=== PATIENT | female | born 1985 | race Hispanic/Latino ===

== ENCOUNTER 2017-11-12 19:21 | Emergency (ER) | payer BC ==
--- NOTE | 2017-11-12 19:51 | EDPHYS ---
Physician Documentation [facility] Name: Dolly Garza Age: 32 yrs Sex: Female : 1985 Arrival Date: 11/12/2017 Time: 19:22 Bed 13 Private MD: ED Physician Andrew Olsen HPI: 11/12 19:48 This 32 yrs old Female presents to ER via Ambulatory with complaints of jr8 Shoulder Pain. 19:48 The patient or guardian complains of decreased range of motion, pain. left trapezius. jr8 Onset: The symptoms/episode began/occurred gradually, 2 day(s) ago. Modifying factors: the symptoms are alleviated by nothing. The symptoms are aggravated by movement. Associated signs and symptoms: The patient has no apparent associated signs or symptoms. Severity of symptoms: At their worst the symptoms were moderate, in the emergency department the symptoms are unchanged. The patient has not experienced similar symptoms in the past. Stated that she started a new job for the past couple of weeks. Stated that she started to have pain in the shoulder region with decreased ROM from the pain . 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 - Social history:: Smoking status: Patient/guardian denies using tobacco. - Ebola Screening: : Patient denies travel to an Ebola-affected area in the 21 days before illness onset. ROS: 19:48 Eyes: Negative for injury, pain, redness, and discharge, ENT: Negative for injury, jr8 pain, and discharge, Neck: Negative for injury, pain, and swelling, Cardiovascular: Negative for chest pain, palpitations, and edema, Respiratory: Negative for shortness of breath, cough, wheezing, and pleuritic chest pain, Abdomen/GI: Negative for abdominal pain, nausea, vomiting, diarrhea, and constipation, Back: Negative for injury and pain, Skin: Negative for injury, rash, and discoloration, Neuro: Negative for headache, weakness, numbness, tingling, and seizure. 19:48 MS/extremity: Positive for decreased range of motion, pain, tenderness, of the left scapular area and left trapezius. Exam: 19:48 Eyes: Pupils equal round and reactive to light, extra-ocular motions intact. Lids and jr8 lashes normal. Conjunctiva and sclera are non-icteric and not injected. Cornea within normal limits. Periorbital areas with no swelling, redness, or edema. ENT: Nares patent. No nasal discharge, no septal abnormalities noted. Tympanic membranes are normal and external auditory canals are clear. Oropharynx with no redness, swelling, or masses, exudates, or evidence of obstruction, uvula midline. Mucous membranes moist. Neck: Trachea midline, no thyromegaly or masses palpated, and no cervical lymphadenopathy. Supple, full range of motion without nuchal rigidity, or vertebral point tenderness. No Meningismus. Cardiovascular: Regular rate and rhythm with a normal S1 and S2. No gallops, murmurs, or rubs. Normal PMI, no JVD. No pulse deficits. Respiratory: Lungs have equal breath sounds bilaterally, clear to auscultation and percussion. No rales, rhonchi or wheezes noted. No increased work of breathing, no retractions or nasal flaring. Abdomen/GI: Soft, non-tender, with normal bowel sounds. No distension or tympany. No guarding or rebound. No evidence of tenderness throughout. Skin: Warm, dry with normal turgor. Normal color with no rashes, no lesions, and no evidence of cellulitis. MS/ Extremity: Pulses equal, no cyanosis. Neurovascular intact. Full, normal range of motion. Neuro: Awake and alert, GCS 15, oriented to person, place, time, and situation. Cranial nerves II-XII grossly intact. Motor strength 5/5 in all extremities. Sensory grossly intact. Cerebellar exam normal. Normal gait. 19:48 Back: pain, that is moderate, of the left trapezius and left scapular area, ROM is painful, normal spinal alignment noted, CVA tenderness, is absent, muscle spasm, is appreciated in the left scapular area. Vital Signs: 19:45 BP 131 / 98; Pulse 58; Resp 16; Temp 97.6(TE); Pulse Ox 97% on R/A; Pain 10/10; aj1 MDM: 19:40 Patient medically screened. jr8 19:49 Data reviewed: vital signs, nurses notes, and as a result, I will discharge patient. jr8 Data interpreted: Pulse oximetry: on room air is 97 %. Interpretation: normal. Counseling: I had a detailed discussion with the patient and/or guardian regarding: the historical points, exam findings, and any diagnostic results supporting the discharge/admit diagnosis, the need for outpatient follow up, a family practitioner, to return to the emergency department if symptoms worsen or persist or if there are any questions or concerns that arise at home. Administered Medications: No medications were administered Disposition: 11/12/17 19:50 Discharged to Home. Impression: Muscle spasm of back. - Condition is Stable. - Discharge Instructions: Muscle Cramps and Spasms, Back Exercises, Rgew-ae-Rpro, Heat Therapy. - Prescriptions for Ibuprofen 800 mg Oral Tablet - take 1 tablet by ORAL route every 12 hours As needed take with food; 20 tablet. Ultracet 37.5- 325 mg Oral Tablet - take 1 tablet by ORAL route every 6 hours - for up to 5 days; do not exceed 8 tablets per day.; 30 tablet. Cyclobenzaprine 10 mg Oral Tablet - take 1 tablet by ORAL route every 8 hours As needed; 30 tablet. - Work release form, Medication Reconciliation Form, Thank You Letter, Antibiotic Education, Prescription Opioid Use form. - Follow up: Private Physician; When: 1 week; Reason: Recheck today's complaints, Continuance of care, Re-evaluation by your physician. - Problem is new. - Symptoms have improved. Addendum: 11/15/2017 10:17 Co-signature as Attending Physician, Andrew Olsen MD. g s Signatures: Chelsy Saha RN RN aj1 Kristen Singh RN RN iw Oc Jeff PA PA jr8 Andrew Olsen MD MD gs Corrections: (The following items were deleted from the chart) 11/12 20:00 19:50 11/12/2017 19:50 Discharged to Home. Impression: Muscle spasm of back. Condition iw is Stable. Forms are Medication Reconciliation Form, Thank You Letter, Antibiotic Education, Prescription Opioid Use. Follow up: Private Physician; When: 1 week; Reason: Recheck today's complaints, Continuance of care, Re-evaluation by your physician. Problem is new. Symptoms have improved. jr8
--- NOTE | 2017-11-12 19:51 | ER ---
Nurse's Notes [facility] Name: Dolly Garza Age: 32 yrs Sex: Female : 1985 Arrival Date: 11/12/2017 Time: 19:22 Bed 13 Private MD: Diagnosis: Muscle spasm of back Presentation: 11/12 19:42 Presenting complaint: Patient states: She has been having left shoulder pain that aj1 radiates to her neck and down her back since yesterday. Denies injury. Limited ROM noted to left shoulder. Transition of care: patient was not received from another setting of care. Onset of symptoms was November 11, 2017. Risk Assessment: Do you want to hurt yourself or someone else? Patient reports no desire to harm self or others. Initial Sepsis Screen: Does the patient meet any 2 criteria? No. Patient's initial sepsis screen is negative. Does the patient have a suspected source of infection? No. Patient's initial sepsis screen is negative. Care prior to arrival: None. 19:42 Method Of Arrival: Ambulatory aj1 19:42 Acuity: CYNTHIA 4 aj1 Triage Assessment: 19:45 General: Appears in no apparent distress. uncomfortable, Behavior is calm, cooperative, aj1 appropriate for age. Pain: Complains of pain in left trapezius, left scapular area and neck Pain currently is 10 out of 10 on a pain scale. Neuro: Level of Consciousness is awake, alert, obeys commands. Cardiovascular: Patient's skin is warm and dry. Respiratory: Airway is patent Respiratory effort is even, unlabored, Respiratory pattern is regular, symmetrical. Derm: Skin is pink, warm \T\ dry. normal. Musculoskeletal: Range of motion: limited in left shoulder. CENA: 19:45 LMP 11/04/2017 aj1 Historical: - Allergies: 19:45 No Known Allergies; aj1 - Home Meds: 19:45 None [Active]; aj1 - PMHx: 19:45 Migraines; aj1 - PSHx: 19:45 ; ear surgery; aj1 - Immunization history:: Flu vaccine is not up to date. - Social history:: Smoking status: Patient/guardian denies using tobacco. - Ebola Screening: : Patient denies travel to an Ebola-affected area in the 21 days before illness onset. Screenin:59 Abuse screen: Denies threats or abuse. Denies injuries from another. Nutritional iw screening: No deficits noted. Tuberculosis screening: No symptoms or risk factors identified. Fall Risk None identified. Assessment: 19:45 General: Appears in no apparent distress. uncomfortable, Behavior is calm, cooperative, iw appropriate for age. Pain: Complains of pain in left shoulder Pain currently is 9 out of 10 on a pain scale. Neuro: Level of Consciousness is awake, alert, obeys commands, Oriented to person, place, time, situation, Appropriate for age Moves all extremities. Full function Speech is normal, Facial symmetry appears normal. Cardiovascular: Denies chest pain, shortness of breath, Capillary refill < 3 seconds Patient's skin is warm and dry. Respiratory: Airway is patent Respiratory effort is even, unlabored, Respiratory pattern is regular, symmetrical. GI: Abdomen is non-distended. : No signs and/or symptoms were reported regarding the genitourinary system. EENT: No signs and/or symptoms were reported regarding the EENT system. Derm: Skin is intact, Skin is pink, warm \T\ dry. normal, Skin temperature is warm. Musculoskeletal: Circulation, motion, and sensation intact. Range of motion: intact in left shoulder. Vital Signs: 19:45 BP 131 / 98; Pulse 58; Resp 16; Temp 97.6(TE); Pulse Ox 97% on R/A; Pain 10/10; aj1 ED Course: 19:22 Patient arrived in ED. am2 19:35 [facility] jr8 19:35 Andrew Olsen MD is Attending Physician. jr8 19:43 Triage completed. aj1 19:45 Arm band placed on Patient placed in an exam room. aj1 19:50 Kristen Singh, JAYME is Primary Nurse. iw 19:59 No provider procedures requiring assistance completed. Patient did not have IV access iw during this emergency room visit. 20:00 Patient has correct armband on for positive identification. Pulse ox on. NIBP on. iw Administered Medications: No medications were administered Outcome: 19:50 Discharge ordered by . jr8 19:59 Discharged to home ambulatory. iw 19:59 Condition: stable 19:59 Discharge instructions given to patient, Instructed on discharge instructions, follow up and referral plans. Demonstrated understanding of instructions, follow-up care, medications, Prescriptions given X 3. 20:00 Patient left the ED. iw Signatures: Chelsy Saha RN RN aj1 Kristen Singh RN RN iw Oc Jeff PA PA jr8 Soraida Dillard am2
== END 2017-11-12 20:00 | disposition home or self-care (01) ==
LOC: ER 19:21
DX: M62.830 Muscle spasm of back (principal)
CPT/HCPCS: 99283

== ENCOUNTER 2019-11-18 23:20 | Emergency (ER) | payer BC ==
--- OUTSIDE RECORDS SUMMARY | 2019-11-18 23:23 | XMS REPORT | Summary of Care ---
:1985 [address] [facility] - Health Address [address] [place] [address] Care Team Providers Name Role Phone Tisha Morton AMBAR Primary Care Provider Encounter Details Date Type Department Care Team Description 08/28/[address] [facility] Doctor Unassigned, No [address] [facility] Name [place] [id number] [place] [phone] Allergies No Known Allergiesdocumented as of this encounter (statuses as of 08/28/2019) Medications Medication Sig Dispensed Refills Start Date End Date Status polyethylene glycol 1 capful PO qd 238 g 2 08/23/2017 Active (MIRALAX) 17 gram/dose prn, dissolve in powderIndications: 4-8oz of liquid Constipation, unspecified constipation type norgestimate-ethinyl Take 1 tablet by 3 Package 8 06/06/2018 Active estradiol (ORTHO mouth daily. TRI-CYCLEN, 28,) 0.18/0.215/0.25 mg-35 mcg (28) tabletIndications: Encounter for other contraceptive management documented as of this encounter (statuses as of 08/28/2019) Active Problems Problem Noted Date Well woman exam 05/23/2018 Contraceptive management 05/23/2018 documented as of this encounter (statuses as of 08/28/2019) Resolved Problems Problem Noted Date Resolved Date Postcoital bleeding 04/30/2017 05/23/2018 Pain pelvic 06/12/2016 04/30/2017 Family planning, BCP ( control pills) maintenance 12/2804/30/2017 Encounter for routine gynecological examination 10/30/2014 04/30/2017 Overview: ICD10 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 and advice for contraceptive 201404/30/2017 management BCP ( control pills) initiation 10/29/2014 Postcoital bleeding 10/29/2014 04/28/2016 Irregular menstrual cycle 10/07/2014 04/28/2016 documented as of this encounter (statuses as of 08/28/2019) Immunizations Name Administration Dates Next Due Tdap 03/15/2012 documented as of this encounter Social History Tobacco Use Types Packs/Day Years Used Date Never Smoker Smokeless Tobacco: Never Used Alcohol Use Drinks/Week oz/Week Comments No 0 Standard drinks or equivalent 0.0 Sex Assigned at Date Recorded Not on file Job Start Date Occupation Industry Not on file Not on file Not on file Travel History Travel Start Travel End No recent travel history available. documented as of this encounter Last Filed Vital Signs Not on filedocumented in this encounter Plan of Treatment Date Type Specialty Care Team Description 08/28/2019 Office Visit [facility] Graciela Morton, AMBAR Arrived [address] [place], [place] [address] [phone] Health Maintenance Due Date Last Done Comments VARICELLA VACCINES (1 of 2 - 06/10/1984 2-dose childhood series) Depression Screening 1995 PAP SMEAR 09/28/2017 09/28/2014 INFLUENZA VACCINE (Season Ended) 2019 DTaP,Tdap,and Td Vaccines (2 - Td) 03/15/2022 03/15/2012 PNEUMOCOCCAL 0-64 YEARS COMBINED Aged Out No longer eligible based on SERIES patient's age to complete this topic documented as of this encounter Procedures Procedure Name Priority Date/Time Associated Diagnosis Comme nts ASSIGNMENT OF BENEFITS Routine 08/28/2019 10:33 AM CDT documented in this encounter Results Not on filedocumented in this encounter Insurance Payer Benefit Plan Subscriber ID Effective Dates Phone Address Type / Group [facility] [id number] 2016-Jerry [phone] [address] PPO/POS [place] t 7 [id number] [place] [address] documented as of this encounter Advance Directives Name Relationship Healthcare Agent Relationship Co mmunication David Garza Spouse Primary healthcare agent
--- OUTSIDE RECORDS SUMMARY | 2019-11-18 23:23 | XMS REPORT | Summary of Care ---
:[address] [facility] Address [address] [place] [address] Care Team Providers Name Role Phone Tisha Morton [facility] Primary Care Provider Reason for Visit Reason Comments Refill Request Encounter Details Date Type Department Care Team Description [facility] [address] [place] [address] [phone] [place], [place] [address] [phone] Allergies No Known Allergiesdocumented as of this encounter (statuses as of 08/24/2019) Medications Medication Sig Dispensed Refills Start Date [...] as of this encounter (statuses as of 08/24/2019) Active Problems Problem Noted Date Well woman exam 05/23/2018 Contraceptive management 05/23/2018 documented as of this encounter (statuses as of 08/24/2019) Resolved Problems Problem Noted Date Resolved Date Postcoital bleeding 04/30/2017 05/23/2018 Pain pelvic 06/12/2016 04/30/2017 Family planning, BCP ( control pills) maintenance 12/2804/30/2017 Encounter for routine gynecological examination 10/30/2014 04/30/2017 Overview: ICD10 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 and advice for contraceptive 201404/30/2017 management BCP ( control pills) initiation 10/29/2014 Postcoital bleeding 10/29/2014 04/28/2016 Irregular menstrual cycle 10/07/2014 04/28/2016 documented as of this encounter (statuses as of 08/24/2019) Immunizations Name Administration Dates Next Due Tdap [...] filedocumented in this encounter Plan of Treatment Health Maintenance Due Date Last Done Comments VARICELLA VACCINES (1 of 2 - 06/10/1984 2-dose childhood series) Depression Screening 1995 PAP SMEAR 09/28/2017 09/28/2014 INFLUENZA VACCINE (Season Ended) 2019 DTaP,Tdap,and Td Vaccines (2 - Td) 03/15/2022 03/15/2012 PNEUMOCOCCAL 0-64 YEARS COMBINED Aged Out No longer eligible based on SERIES patient's age to complete this topic documented as of this encounter Results Not on filedocumented in this encounter Visit Diagnoses Diagnosis Encounter for other contraceptive manage ment documented in this encounter Insurance Payer Benefit Plan Subscriber ID Effective Dates Phone Address Type / Group [employer] [place] [id number] 2016-Jerry [phone] [address] PPO/POS [place] t 7 [id number] [place] [address] documented as of this encounter Advance Directives Name Relationship Healthcare Agent Relationship Co mmunication David Garza Spouse Primary healthcare agent
--- OUTSIDE RECORDS SUMMARY | 2019-11-18 23:23 | XMS REPORT | Continuity of Care Document ---
:1985 Author Organization [facility] t Address [address] [place] [address] Care Team Providers Name Role Phone Tisha Olivarez Attending Clinician [phone] Problems This patient has no known problems. Allergies, Adverse Reactions, Alerts This patient has no known allergies or adverse reactions. Medications This patient has no known medications. Procedures This patient has no known procedures. Encounters Start End Encounter Admission Attending Care Care Encounter Source Date/Time Date/Time Type Type Clinicians Facility Department ID 2019-10-22 2019-10-22 Refill KIM Morton [id number] 00:00:00 00:00:00 Tisha Chavira [facility] [id number] REGIONAL [id number] MATERNAL [id number] & CHILD [facility] 2019-08-28 2019-08-28 Office KIM Morton [id number] 10:28:26 11:49:05 Visit Tisha Chavira COMMUNITY CENTER WORKER [id number] [facility] [id number] MATERNAL [id number] & CHILD 107 [facility] Results This patient has no known results.
--- OUTSIDE RECORDS SUMMARY | 2019-11-18 23:23 | XMS REPORT | Summary of Care ---
:1985 Author Organization [facility] - [facility] Address [address] [place] [id number] Care Team Providers Name Role Phone Tisha Morton [facility] Primary Care Provider [phone] Reason for Visit Reason Comments Well Woman Exam Encounter Details Date Type Department Care Team Description 08/28/[address] [facility]- Tisha Morton ounter for initial prescription of contraceptives, unspecified contraceptive (Primary Dx); [facility]; [address] Encounter for other contraceptive manage ment; [address] [facility] Screening for thyroid disorder [place] [id number] 15 [id number] Allergies No Known Allergiesdocumented as of this encounter (statuses as of 08/28/2019) Medications Medication Sig Dispensed Refills Start Date End Date Status polyethylene 1 capful PO 238 g 2 08/23/2017 Acti ve glycol (MIRALAX) qd prn, 17 gram/dose dissolve in powderIndications: 4-8oz of Constipation, liquid unspecified constipation type norgestimate-ethin Take 1 tablet 1 Package 11 08/28/2019 Active yl estradiol by mouth (ORTHO TRI-CYCLEN, daily. 28,) 0.18/0.215/0.25 mg-35 mcg (28) tabletIndications: Encounter for other contraceptive management norgestimate-ethin Take 1 tablet 3 Package 8 06/06/2018 Discontinued yl estradiol by mouth 0 (Reorde r) (ORTHO TRI-CYCLEN, daily. 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 COVID-19 Exposure Response Date Recorded In the last month, have you been in contact with No / Unsure 08/28/2019 10:45 AM CDT someone who was confirmed or suspected to have Coronavirus / COVID-19? documented as of this encounter Last Filed Vital Signs Vital Sign Reading Time Taken Comments Blood Pressure 112/77 08/28/2019 10:45 AM CDT Pulse 53 08/28/2019 10:45 AM CDT Temperature 36.5 C (97.7 F) 08/28/2019 10:45 AM CDT Respiratory Rate 16 08/28/2019 10:45 AM CDT Oxygen Saturation - - Inhaled Oxygen Concentration - - Weight 56.2 kg (124 lb) 08/28/2019 10:45 AM CDT Height 160 cm (5' 3") 08/28/2019 10:45 AM CDT Body Mass Index 21.97 08/28/2019 10:45 AM CDT documented in this encounter Patient Instructions Patient Heather Leroy LVN - 08/28/2019 10:45 AM CDT Patient Education Examen clnico de seno Muchas organizaciones de caren recomiendan hacerse un examen clnico de seno por ao. Tabatha examen puede ser realizado por un gineclogo, proveedor de atencin mdica de kayden, enfermera profesional, enfermera obsttrica o enfermera especializada. Los exmenes de seno anuales ayudan a garantizar que las afecciones de los senos se detecten a tiempo. Funcin de carbajal proveedor de atencin mdica El profesional de la atencin mdica conoce los estudios y cuidados de seguimiento necesarios si se detecta algn problema. Carbajal examen clnico representa tambin real excelente oportunidad para plantear preguntas acerca del autoexamen de seno. Usted podr saber si est realizando carbajal autoexamen elias manera ms eficaz. Igualmente, puede preguntar sobre manager regional el embarazo, los implantes de seno o la ciruga de reduccin de seno afectan la manera en que usted deber examinarse los senos. Estudios de diagnstico Si un examen clnico revela un cambio en los senos, se pueden efectuar otros estudios para saber ms, por ejemplo: Mamografa. Iraj X de baja dosis utilizados para crear imgenes del tejido interior del seno. Ultrasonido. Utilizacin de ondas de moy para crear real imagen del seno. Biopsia. Remocin de real pequea cantidad de tejido del seno mediante real aguja o real incisin. El tejido se examina luego con un microscopio. Normas para realizarse exmenes clnicos de seno ElAmerican College of Obstetricians and Gynecologists (Colegio Estadounidense de Obsttras y Gineclogos) recomienda que, a partir de los 29 aos de edad, usted debe hacerse a un examen clnico de seno cada yanet a mark aos. Despus de los 40, deber hacerse el examen clnico de seno anualmente. Si tiene mayor riesgo de padecer cncer de seno, puede requerir exmenes ms frecuentes. Entrelos factores de riesgo del cncer de seno se encuentran los siguientes: Ser mayor de 50 aos o estar en etapa posmenopusica Tener antecedentes familiares de cncer de seno Tener la mutacin del gen BRCA1 o BRCA2 u otras determinadas mutaciones genticas Zulema tenido ms menstruaciones por zulema empezado a menstruar a edad temprana (antes de los 12 aos) o zulema tenido real menopausia tarda (despus de los 55 aos) No zulema tenido embarazos Zulema tenido un primer embarazo despus de los 30 aos Obesidad Tener un historial de tratamiento con iraj en la sonya de carbajal pecho Exposicin al dietilestilbestrol(SONIA)cesar el embarazo de carbajal madre No ser activo Beber alcohol en exceso Tener tejido mamario denso Realizar terapia hormonal despus de la menopausia Otras organizaciones de caren tienen diferentes recomendaciones. Hable con carbajal proveedor de atencinmdica sobre lo que es mejor para usted. [id number] [employer]. [address] [place] [address], [place] [address]. Todos los derechos reservados. Esta informacin no pretende sustituir la atencin mdica profesional. Slo carbajal mdico puede diagnosticar y tratar un problema de caren. Patient Education Caren de los senos: Conocimiento de los propios senos Qu es el conocimiento de los propios senos? El conocimiento de los propios senos es saber manager regional se monserrat y se sienten normalmente janene senos. Janene senos cambian a lo glenn de las diferentes etapas de la niraj. Por eso, es importante saber qu es lo normal en el jaison de janene senos. Conocer janene propios senos le ayudar a darse cuenta de inmediato de cualquier cambio que pudiese zulema en janene senos. Informe de cualquier cambio a carbajal proveedor de atencin mdica. Por qu es importante el conocimiento de los propios senos? Muchos expertos dicen ahora que las mujeres deberan conocer mejor janene senos en lugar de hacerse unautoexamen de los senos (BSE, por janene siglas en ingls). Tales expertos son, por ejemplo, la Sociedad Americana contra el Cncer, el U.S. Preventive Services Task Force (USPSTF, Gonsalo de tareas dedicado a los servicios preventivos en [place]. U[place].) y el [place] Congress of Obstetricians and Gynecologists(Colegio Americano de Obstetras y Gineclogos). Algunos expertos incluso aconsejan no ensearles ma mujeres a hacerse un autoexamen de los senos. Eso es porque las investigaciones realizadas no cooper demostrado que radha tipo de autoexamen tenga algn beneficio. El conocimiento de los propios senos es diferente del autoexamen. No tiene que zach con seguir un cierto mtodo y cronograma. Tiene que zach con saber qu es lo normal en el jaison de janene senos. As, usted podr notar de inmediato hasta los cambios ms pequeos. Si percibe algn cambio, informe a carbajal proveedor de atencin mdica. Cambios a los que debe prestar atencin Llame a carbajal proveedor de atencin mdica si ve algn cambio en janene senos que le preocupe. Estos cambios pueden incluir, por ejemplo: Un bulto Secrecin del pezn que no sea leche materna, especialmente, si tiene rastros de ngozi Inflamacin Un cambio en la forma o el tamao Irritacin de la piel, gentry enrojecimiento, engrosamiento o hundimiento de la piel Ganglios linfticos inflamados en la axila Problemas en los pezones, gentry dolor o enrojecimiento Si encuentra un bulto Comunquese con carbajal proveedor si nota algn tipo de dureza en yanet de janene senos, siente algo diferente en el tejido o, definitivamente, palpa un bulto. En ocasiones, las durezas pueden deberse a los cambios menstruales. Larry puede que haya motivos para preocuparse. Carbajal proveedor querr verla de inmediato si usted tiene: Real secrecin sanguinolenta del pezn Cambios en la piel, gentry hundimiento o pliegues Es normal que se preocupe si encuentra un bulto. Larry es importante que se comunique de inmediato con carbajal proveedor. Recuerde que la mayora de los bultos en los senos son benignos. Eso significa que no son cancerosos. [id number] [employer]. [address] [place] [address], [place] [address]. Todos los derechos reservados. Esta informacin no pretende sustituir la atencin mdica profesional. Slo carbajal mdico puede diagnosticar y tratar un problema de caren. Patient Education Pautas de prevencin para mujeres de entre 18 y 39aos de edad Las pruebas de deteccin y las vacunas son importantes para el manejo de carbajal caren. Las pruebas de deteccin se realizan para detectar posibles trastornos o enfermedades en personas que no tienen ningn sntoma. El objetivo es encontrar real enfermedad de manera temprana para poder hacer cambios en el estilo de niraj y para que lo puedan controlar de cerca para reducir los riesgos de sufrir real enfermedad, o para detectarla a tiempo y poder tratarla de manera eficaz. Las pruebas de deteccin no son pruebas de diagnstico, lrary se usan para decidir si se deben realizar otros estudios. La consejera sobre carbajal caren tambin es esencial. A continuacin, zach pautas en relacin con esos temas para mujeres de entre 18 y 39aos de edad. Hable con carbajal proveedor de atencin mdica para asegurarse de que est al da con todo lo que necesita. Prueba de deteccin Para quines Frecuencia Uso indebido del alcohol Todas las mujeres de tabatha gonsalo de edad En los exmenes de rutina Presin arterial Todas las mujeres de tabatha gonsalo de edad [place]que[place] anual si carbajal presin arterial es normal La presin arterial normal es simon que 120/80mmHg Si la lectura de carbajal presin arterial es ms ru que lo normal, siga las indicaciones de carbajal proveedor de atencin mdica Cncer de mama Todas las mujeres de tabatha gonsalo de edad deben hablar con janene proveedores de atencin mdica sobre la necesidad de realizar exmenes clnicos de mamas (CBE)1 Examen clnico de mamascada 3 aos1 Cncer del taryn uterino Las mujeres de 21 aos o ms Las mujeres de entre 21 y 29 aos deben hacer un Papanicolau cada mark aos; las mujeres de entre 30 y 65 deben hacerse un Papanicolau y tambin real prueba de VPH cada tomás aos Clamidia Las mujeres sexualmente activas menores de 24 aos y las mujeres que tienen mayor riesgo de infeccin Cada mark aos si tiene riesgo o si tiene sntomas Depresin Todas las mujeres de tabatha gonsalo de edad En los exmenes de rutina Diabetes tipo 2, prediabetes Las adultas que no tengan sntomas, que tengan sobrepeso o que james obesas y tengan yanet o ms riesgos adicionales de diabetes Al menos cada mark aos Adems, anlisis para detectar la diabetes cesar el embarazo despus de la semana 24. Diabetes tipo 2, prediabetes Todas las mujeres diagnosticadas con diabetes gestacional Anlisis de por niraj cada mark aos Diabetes tipo 2 Todas las mujeres con prediabetes Anualmente Gonorrea Las mujeres sexualmente activas con mayor riesgo de infeccin En los exmenes de rutina Hepatitis C Todas las mujeres que tienen mayor riesgo En los exmenes de rutina VIH Todas las mujeres deben realizarse la prueba del VIH al menos real vez entre los 13 y los 64 aos En los exmenes de rutina Las personas con factores de riesgo de tener el VIH deben hacerse los anlisis anualmente, gentry mnimo. Obesidad Todas las mujeres de tabatha gonsalo de edad En los exmenes de rutina Sfilis Las mujeres con mayor riesgo de infeccin deben hablar con carbajal proveedor de atencin mdica En los exmenes de rutina Tuberculosis Las mujeres con mayor riesgo de infeccin deben hablar con carbajal proveedor de atencin mdica Consulte a carbajal proveedor de atencin mdica Wilson Todas las mujeres de tabatha gonsalo de edad Al menos un examen completo entre los 20 y los 30 aos, y dos entre los 30 y los 40 aos Vacuna2 Para quines Frecuencia Varicela Todas las mujeres de tabatha gonsalo de edad que no tienen registro de zulema tenido esta infeccin o de haberse aplicado esta vacuna Dos dosis. La segunda dosis debera aplicrsela entre cuatro y ocho semanas despus de la primera dosis Hepatitis A Las mujeres con mayor riesgo de infeccin deben hablar con carbajal proveedor de atencin mdica Dos dosis que se aplican al menos con seis meses de distancia Hepatitis B Las mujeres con mayor riesgo de infeccin deben hablar con carbajal proveedor de atencin mdica Mark dosis a lo glenn de seis meses; la segunda dosis debera aplicarse un mes despus de la primera dosis; la tercera dosis debera aplicarse al menos dos meses despus de la segunda dosis y,al menos, cuatro meses despus de la primera dosis Haemophilus influenzaeTipo B (HIB) Las mujeres con mayor riesgo de infeccin deben hablar con carbajal proveedor de atencin mdica Real a mark dosis Virus del papiloma humano (VPH) Todas las mujeres de tabatha gonsalo de edad hasta los 26 aos Mark dosis; la segunda dosis debera aplicarse entre yanet y dos meses despus de la primera dosis, y la tercera dosis debera aplicarse seis meses despus de la primera dosis Influenza (gripe) Todas las mujeres de tabatha gonsalo de edad Real vez al ao Sarampin, paperas y rubola (MMR) Todas las mujeres de tabatha gonsalo de edad que no tienen registro de zulema tenido estas infecciones o de haberse aplicado estas vacunas Real o dos dosis Antimeningoccica Las mujeres con mayor riesgo de infeccin deben hablar con carbajal proveedor de atencin mdica Real dosis o ms Antineumoccica conjugada (PCV13) y de polisacridos (PPSV23) Las mujeres con mayor riesgo de infeccin deben hablar con carbajal proveedor de atencin mdica PCV13: Real dosis entre los 19 y 65 aos (protege contra 13 tipos de bacteria neumoccica) PPSV23: Real a dos dosis hasta los 64 aos de edad, o real dosis a partir de los 65 aos (protege contra 23 tipos de bacteria neumoccica) Refuerzo de ttanos/difteria/tos ferina (Td/Tdap) Todas las mujeres de tabatha gonsalo de edad Td cada mustapha aos o real cristo dosis de Tdap en lugar de un refuerzo de Td despus de los 18 aos. Luego, Td cada mustapha aos Consejera Para quines Frecuencia Pruebas sobre mutacin de los genes BRCA para zach el riesgo de tener cncer de ovario y cncer demama Las mujeres con mayor riesgo de tener mutacin de los genes Cuando se conoce carbajal riesgo Cncer de mama y prevencin qumica del cncer Las mujeres con alto riesgo de cncer de mama Cuando se conoce carbajal riesgo Dieta y actividad fsica Las mujeres que tienen sobrepeso u obesidad Cuando se diagnostica y, luego, en los exmenes de rutina Violencia domstica Las mujeres en edad de tener hijos En los exmenes de rutina Prevencin de infecciones de trasmisin sexual Las mujeres sexualmente activas En los exmenes derutina Cncer de piel Prevencin de cncer de piel en mujeres adultas de piel matthias En los exmenes de rutina Uso del tabaco y los efectos que puede tener sobre la caren Todas las mujeres de tabatha gonsalo de edad Todas las visitas 1Segn la [employer], las mujeres entre los 20 y los 39 aos de edad deberan hacerse un examen clnico de mama (CBE) gentry parte de janene exmenes de caren de rutina cada 3 aos. Los autoexmenes de mama son real opcin para las mujeres a partir de los 20 aos.Larry la U.S. Preventive Task Force no recomienda los exmenes clnicos de mama. 2Las personas de 18 aos o ms que no estn al da con las vacunas de la infancia deben recibir todas las vacunas de rescate recomendadas por los CDC. [id number] [employer]. [address] [place] [id number]. All rights reserved. This information is not intended as a substitute for professional medical care. Always follow your healthcare professional's instructions. Patient Education Qu son las infecciones de transmisin sexual (ITS)? Cuando de relaciones sexuales se trata, nada est jason de riesgos. Todo contacto sexual que tenga que zach con el pene, la vagina, el ano o la boca puede propiciar la propagacin de real infeccin detransmisin sexual (ITS). Las enfermedades de transmisin sexual incluyen clamidia, gonorrea, herpes, virus de la inmunodeficiencia humana (VIH) y verrugas genitales. Las infecciones de transmisin sexual tambin se conocen gentry enfermedades de transmisin sexual (ETS). La cristo manera avelar deprevenir las infecciones de transmisin sexual es no tener relaciones sexuales (abstinencia). Sin embargo, existen maneras de hacer que las relaciones sexuales james ms seguras. Cada vez que tenga rel aciones sexuales, utilice un condn de ltex. Elija carbajal jazmin con carmen. Utilice condones para mayor seguridad. Si tiene relaciones sexuales, los condones de ltex ofrecen la mejor proteccin contra las infecciones de transmisin sexual. Los condones de ltex impiden el intercambio de fluidos corporales que transmiten ciertas infecciones de trasmisin sexual. Adems, limitan el contacto con las zonas afectadas de la piel. Tenga en cuenta que el condn no cubre toda la piel. De modo que la piel afectada que no est cubierta puede an transmitir la enfermedad. No obstante, usted est mejor protegido cuando utiliza un condn que cuando no lo hace. Utilice un condn incluso si est utilizando otros m todos anticonceptivos. Los mtodos anticonceptivos gentry la pldora o los dispositivos intrauterinos (DIU) ayudan a prevenir el embarazo, larry no protegen contra las infecciones de transmisin sexual. Elija el condn adecuado Los condones de ltex ofrecen la mejor proteccin contra las enfermedades. Si es alrgico al ltex, entonces utilice condones de poliuretano. Los condones masculinos se colocan sobre el pene. Los condones femeninos recubren la vagina. Antes de comprar un condn, juan la etiqueta para asegurarse deque ayude a prevenir enfermedades, ya que algunos condones nuevos no ofrecen proteccin. El lubricante adecuado es importante Compre condones lubricados o utilice lubricante. [facility] ofrece mayor comodidad y reduce el riesgo de que se rompa el condn. Utilice solo lubricantes a base de agua. No use aceite, locin ni vaselina ya que pueden debilitar el condn y hacer que se rompa. Asimismo, se recomienda utilizar lubricantes sin nonoxinol- 9. Tabatha espermicida puede causar irritacin y aumentar el riesgo de contraer ciertas infecciones de transmisin sexual. Utilice los condones correctamente Para que los condones james eficaces, deben utilizarse correctamente. Tenga presente las siguientes sugerencias. Cada vez que tenga relaciones sexuales, utilice un condn de ltex nuevo. Pngase el condn en el pene antes de que se produzca cualquier contacto. Cuando se disponga a sacar el pene, sostenga el melissa del condn a medida que lo extrae. [facility] evitar que se le salga el condn. Antes de utilizar un condn, verifique carbajal fecha de vencimiento. No guarde los condones en lugares que puedan calentarse, gentry el auto o la billetera que se llevaen un bolsillo trasero. Conozca a carbajal jazmin Las relaciones sexuales seguras representan un proceso que supone llegar a conocer radha a la jazmin y philippe decisiones informadas. Es importante hablar de cuntas parejas weinstein tenido cada nicolette en el pasado y cuntas tiene en la actualidad. Averige si alguno de los dos tiene VIH o alguna otra infeccin de transmisin sexual. Si deciden tener relaciones sexuales, utilicen un condn cada vez que lo kelli. No deje de utilizar condones a menos que tenga la certeza de que ninguno de los dos tiene otras parejas y ambos se hayan realizado pruebas para comprobar que no tienen VIH ni ninguna otra infeccin de transmisin sexual. Luego, mantngase jason de enfermedades teniendo solo relaciones sexua les el yanet con el otro (monogamia). Mantngase en control No deje que el alcohol ni las drogas le nublen el juicio, ya que lo pueden llevar a tener relacionessexuales con alguien que usted no habra elegido de zulema estado sobrio. Tambin es posible que olvide utilizar un condn. Si tiene pensado tener relaciones sexuales, lleve siempre consigo un condn. No espere hasta que se encuentre en medio de real situacin apasionada para intentar encontrar yanet. Considere la abstinencia La cristo manera de estar seguro de que no contraer real infeccin de transmisin sexual es abstenerse de tener relaciones sexuales. La abstinencia es real decisin que muchas personas johnathan en algn momento de janene vidas. John vez desee esperar hasta estar convencido de que est listo para tener re laciones sexuales. Quizs quiera philippe un descanso de las responsabilidades que supone tener relaciones sexuales; o es posible que quiera conocer mejor a carbajal jazmin antes de eddi el siguiente paso. La abstinencia es real decisin que usted puede philippe ahora para proteger carbajal futuro. [id number] [employer]. [address] [place] [id number]. Todos los derechos reservados. Esta informacin no pretende sustituir la atencin mdica profesional. Slo carbajal mdico puede diagnosticar y tratar un problema de caren. Patient Education Qu es el VIH y el SIDA Es importante saber manager regional puede entrar el VIH en el cuerpo y qu pasa real vez que haya entrado. Entonces, estar mejor preparado para protegerse a usted mismo y a otros contra tabatha virus. Real personaque tiene el VIH puede verse y sentirse perfectamente. Larry geeta persona puede contagiar de VIH a otros jennings pronto est infectado. Si mantiene relaciones sexuales inseguras y sin proteccin, o comparte agujas, corre el riesgo de contraer el VIH. Consulte a carbajal proveedor de atencin mdica sobre manager regional protegerse a usted mismo y asus seres queridos contra el contagio del VIH. [employer] Aide evoluciona la infeccin por el VIH Despus de que el VIH entra en el cuerpo humano, ataca el sistema inmunitario por etapas, que se detallan a continuacin. Real persona con el VIH puede infectar a otros en el momento en que entra el virus en la ngozi. VIH asintomtico: Real persona con el VIH puede no presentar ningn sntoma cesar aos. La cristo seal de infeccin puede ser el resultado positivo de los anlisis de ngozi para detectar el VIH, de 2 semanas a 3 meses o ms despus de que el VIH haya entrado al organismo. VIH sintomtico:Algunas personas desarrollan real enfermedad similar a la mononucleosis 2 a 4 semanas despus de que el virus entra al organismo. [facility] se denomina sndrome retroviral amilcar. Los sntomas pueden incluir: ganglios linfticos inflamados, escalofros, fiebre, sudores nocturnos, debilidad, prdida de peso, erupciones cutneas y llagas en la boca o dolor de garganta. Los sntomas pueden ser leves o la persona puede sentirse muy mal. Incluso sin tratamiento, los sntomas costa siempre desaparecen en unos montano o hasta 2 a 3 semanas. Entonces, la persona no tiene sntomas, a menudo por aos. Sin embargo, con el tiempo, el sistema inmunitario comienza a debilitarse y los sntomas comienzan a aparecer. Las personas en esta etapa pueden tener real infeccin por levaduras en la boca (candidiasis oral), culebrilla, problemas en la piel, neumona, diarrea que no desaparece, o prdida de peso. SIDA. El SIDA es la etapa ms avanzada de la infeccin por el VIH, cuando el sistema inmunitario se ve gravemente debilitado. Determinadas enfermedades raras y tipos de cncer que normalmente no ocurren, pueden presentarse ahora porque el cuerpo ya no puede combatirlos con la eficiencia suficiente.Estas enfermedades son las que, con frecuencia, pueden causar la muerte en las personas con SIDA. ElVIH tambin puede atacar al cerebro y al sistema nervioso. [facility] causa convulsiones y prdida de lamemoria y el movimiento corporal. Tambin afecta muchas otras partes del cuerpo. [facility] genera problemas gentry anemia, recuento bajo de glbulos blancos, diarrea, dolor estomacal, problemas en la piel ymuchos otros. [employer] Education Aide entra el VIH al cuerpo El VIH es transportado por el semen, el fluido vaginal, la ngozi y la leche materna. Cuando se tienen relaciones sexuales, el VIH puede entrar en el cuerpo a travs de los frgilestejidos y recubrimientos, llagas o lucio en la vagina, el pene, el ano y la boca o alrededor de estos. Con el uso de drogas, tatuajes o perforaciones del cuerpo, el virus puede entrar en la ngozi a travs de real aguja infectada. Real madre que tenga el VIH puede transmitir el virus a carbajal beb cesar el embarazo, en el momento del parto o al amamantarlo. [id number] [employer]. [address] [place] [id number]. Todos los derechos reservados. Esta informacin no pretende sustituir la atencin mdica profesional. Slo carbajal mdico puede diagnosticar y tratar un problema de caren. Patient Education Coma alimentos saludables para carbajal corazn Lo que coma tiene un gran impacto en la caren de carbajal corazn. De hecho, si come de manera ms asim podr disminuir muchos de janene riesgos cardacos al mismo tiempo. Por ejemplo, le ayudar a manejarsu peso, janene niveles de colesterol y carbajal presin arterial. Aqu encontrar consejos para hacer cambios en carbajal dieta que le harn radha a carbajal corazn sin dejar de lado todos los alimentos y los saboresque ms le gustan. Adapted Physical Education Aide comenzar Hable con carbajal proveedor de atencin mdica para que le aconseje sobre planes de alimentacin, por ejemplo, la dieta DASH o la dieta mediterrnea. Tambin es posible que le remita a un dietista. Cambie algunas cosas por vez. Dese tiempo para acostumbrarse a algunos cambios en carbajal alimentacin antes de hacer ms cambios. Intente crear un plan de alimentacin saludable y sabroso que pueda mantener el ruthann de carbajal niraj. Metas para real alimentacin saludable A continuacin, zach algunos consejos para mejorar janene hbitos de alimentacin. Coma menos grasas saturadas y grasas trans. Las grasas saturadas elevan janene niveles de colesterol, por eso, coma lo menos posible de estas grasas. Estn en alimentos tales gentry las thai grasas, la leche entera, el queso entero y los aceites de dominique y de gabriel. Evite las grasas trans porque bajansu colesterol kaye adems de subir carbajal colesterol chasity. Las grasas trans se encuentran ms que nada en los alimentos procesados. Coma menos sodio (gray). Consumir demasiada gray puede subirle la presin arterial. Reduzca la cantidad de sodio que ingiere a 2,300 mg diarios o menos segn le recomiende carbajal proveedor de atencin mdica. Salir a comer con menos frecuencia y elegir menos alimentos procesados son dos excelentes maneras de reducir la cantidad de gray que consume. Cuente las caloras. Real calora es real unidad de energa. Carbajal cuerpo quema caloras para obtener combustible, larry si usted come ms caloras que las que carbajal cuerpo consume, las caloras adicionales se guardan en forma de grasa. Carbajal proveedor de atencin mdica le ayudar a elaborar un plande dieta para manejar janene caloras. Es probable que incluya comer alimentos ms saludables y haceractividad fsica con regularidad. Para ayudarle a llevar la cuenta de carbajal progreso, tenga un diario en el que vaya anotando lo que come y la frecuencia con que hace actividad fsica. Elija los alimentos adecuados Trate de que estos alimentos james los pilares de carbajal dieta. Si tiene diabetes, puede que le den otrasrecomendaciones diferentes de las que se mencionan aqu. Frutas y vegetales: brindan muchos nutrientes sin demasiadas caloras. Cuando coma, llene la mitad de carbajal plato con estos alimentos. A la segunda mitad del plato, divdala entre granos integrales yprotenas magras. Granos integrales: tienen susannah fibra, vitaminas y nutrientes. Es real buena opcin incluir torres, pasta y arroz integrales. Protenas magras: le aportan nutricin con menos grasas. Son buenas opciones el pescado, el nick sin piel y los frijoles. Productos lcteos bajos en grasa o sin grasa: ofrecen nutrientes sin susannah grasa. Pruebe consumir leche, queso o yogur bajos en grasa o sin grasa. Grasas saludables: pueden ser buenas para carbajal corazn si las come en cantidades moderadas. Son las grasas no saturadas, gentry el aceite de dia, las nueces y los pescados. Intente comer al menos dosporciones a la semana de algn pescado graso, gentry salmn, yo, caballa, trucha arcoris y atn albacora (jacques). Tabatha tipo de pescados contienen cidos grasos omega-3, los cuales son especialmente buenos para carbajal corazn. Las semillas de bulmaro constituyen otra earl de grasa saludable parasu corazn. Ms informacin sobre la alimentacin saludable para el corazn Juan las etiquetas de los alimentos La alimentacin saludable comienza en la beena de alimentos. Preste atencin a las etiquetas de nutricin que traen los alimentos empaquetados. Busque productos altos en fibra y protenas, y bajosen grasa saturada, colesterol y sodio. Evite los productos que contienen grasas trans. Tambin preste susannah atencin a las porciones que come. Por ejemplo, si piensa comer dos porciones, duplique todas las cantidades que figuran en la etiqueta. Prepare la comida correctamente Real parte clave de la alimentacin saludable es reducir la cantidad de gray y grasa que agrega a suscomidas. Busque en Internet recetas con menos contenido de grasa y sodio. Julio puede probar los siguientes consejos: Quite la grasa de la carne y la piel del nick antes de cocinar. Quite la grasa que queda en la superficie de sopas y salsas. Ase, hierva, hornee, grille, cocine al vapor o en microondas carbajal comida sin agregarle grasas. Elija ingredientes que le den sabor a janene comidas sin cargarla con caloras, grasa o sodio. Pruebe los siguientes ingredientes: rbano picante, salsa picante, limn, mostaza, aderezos sin grasa para ensaladas y vinagre. Si desea hierbas y especias sin gray, pruebe albahaca, cilantro, perry, radha y yarbrough. [phone] [employer]. [address] [place] [address]. Todos los derechos reservados. Esta informacin no pretende sustituir la atencin mdica profesional. Slo carbajal mdico puede diagnosticar y tratar un problema de caren. Patient Education Adapted Physical Education Aide entender MiPlato ([place]) [employer] [place] por janene siglas en [facility]) weinstein emitido unaserie de pautas para ayudarle a elegir radha janene comidas bajo el nombre de MiPlato (MyPlate en [facility]). MiPlato muestra los grupos de alimentos que conforman real comida saludable utilizando la imagen de un plato y un vaso. Antes de comer, piense en las opciones de alimentos ms saludables que puede poner en carbajal plato, vaso o tazn. Para aprender ms acerca de un plato saludable, visite www.choosemyplate.gov. Los grupos de alimentos Frutas: Cualquier fruta o jugo de fruta al 100% cuenta dentro de tabatha gonsalo. Las frutas pueden ser frescas, enlatadas, congeladas o secas, y pueden ser enteras, en trozos o en pur. Pj que la mitad de carbajal plato james frutas y vegetales. Vegetales: Cualquier vegetal o jugo de vegetales al 100% cuenta dentro de tabatha gonsalo. Los vegetales pueden ser frescos, congelados, enlatados o secos. Pueden servirse crudos o cocidos y pueden ser enteros, cortados o en pur. Pj que la mitad de carbajal plato james frutas y vegetales. Granos: Todos los alimentos hechos a base de granos jenise parte de tabatha gonsalo. [place] incluye panes, pasta, cereales, tortillas y grits de zain, arroz, cyndi, cebada y harina de cyndi y de mike. Los granos no deben ser ms de la cuarta parte de carbajal plato. Al menos la mitad de los granos que consuma deben ser integrales. Protena: Tabatha gonsalo incluye carne, nick, pescados y mariscos, frijoles y chcharos (arvejas),huevos, productos de soya procesada (gentry tofu), nueces (incluidas las mantequillas de nueces), y semillas. Pj que las protenas no james ms de la cuarta parte de carbajal plato. Las opciones de thai ypollo deben ser magras o bajas en grasa. Lcteos: Todos los productos lquidos de leche y los productos a base de leche que contengan calcio, gentry yogures y quesos, son parte de tabatha gonsalo. (Los alimentos con poco contenido de calcio, gentry la crema, la mantequilla y el queso crema, no se incluyen en tabatha gonsalo). La mayora de las opciones de lcteos deben ser bajos de grasa o sin grasa. Aceites: Estas son las grasas lquidas a temperatura ambiente, incluidos los aceites de canola, mike, dia, soya y girasol. Los alimentos que son la mayor parte aceites son mayonesa, ciertos aderezos para ensalada y las margarinas blandas. Usted debe consumir solo de 5 a 7 cucharaditas de aceites al da. Es probable que ya obtenga esta cantidad de los alimentos que come. [phone] [employer]. [address] [place] [address]. Todos los derechos reservados. Esta informacin no pretende sustituir la atencin mdica profesional. Slo carbajal mdico puede diagnosticar y tratar un problema de caren. documented in this encounter Progress Notes Tisha Morton, [facility] - 08/28/2019 10:45 AM CDT Chief complaint: Chief Complaint Patient presents with Well Woman Exam HPI:the patient is here for WWE and contraceptive management. She reports she is doing well with no issues or concerns today. She reports she is currently on ocp for control and reports she took her last pill on 08/19/19. She reports she desires to continue her ocp for control and reports the last time she had intercourse was about 3 days ago but she reports with condom use. Pt (denies) current or past physical, sexual or emotional abuse. Histories OB History Para Term AB Living 3 3 2 1 3 SAB TAB Ectopic Multiple Live Births 3 # Outcome Date GA Lbr Justin/2nd Weight Sex Delivery Anes PTL Lv 3 Term 10/05/12 39w0d 5 lb (2.268 kg) F SEC CHRISTINE 2 09/10/10 32w0d 4 lb (1.814 kg) F SEC CHRISTINE Complications: Placenta Previa 1 Term 10/10/05 39w0d 6 lb (2.722 kg) M VAGINAL CHRISTINE Past Medical History: Diagnosis Date Irregular menstrual cycle 10/07/2014 Family History Problem Relation Age of Onset Hypertension Mother Diabetes Mother Hypertension Father Diabetes Father Hypertension Sister Hypertension Brother Hypertension Maternal Aunt Hypertension Maternal Uncle Hypertension Paternal Aunt Hypertension Paternal Uncle No Significant Medical Problems Maternal Grandmother No Significant Medical Problems Maternal Grandfather Depression Paternal Grandmother Depression Paternal Grandfather Arthritis NoFHx Asthma NoFHx defects NoFHx Breast Cancer NoFHx Colon Cancer NoFHx Ovarian Cancer NoFHx Uterine Cancer NoFHx Cancer NoFHx Genetic NoFHx Heart NoFHx High cholesterol NoFHx Mental retardation NoFHx Neurological NoFHx Osteoporosis NoFHx Psychiatry NoFHx Family Status Relation Name Status Mo Alive Fa Alive Sis Alive Bro Alive MAunt Alive MUnc Alive PAunt Alive PUnc Alive MGMo MGFa PGMo PGFa NoFHx (Not Specified) Past Surgical History: Procedure Laterality Date SECTION INNER EAR SURGERY PROC UNLISTED 2005 Social History Socioeconomic History Marital status: Spouse name: Not on file Number of children: Not on file Years of education: Not on file Highest education level: Not on file Occupational History Not on file Social Needs Financial resource strain: Not on file Food insecurity: Worry: Not on file Inability: Not on file Transportation needs: Medical: Not on file Non-medical: Not on file Tobacco Use Smoking status: Never Smoker Smokeless tobacco: Never Used Substance and Sexual Activity Alcohol use: No Alcohol/week: 0.0 standard drinks Drug use: No Sexual activity: Yes Partners: Male control/protection: Pill Comment: last sexual intercourse 08/24/2019 Lifestyle Physical activity: Days per week: Not on file Minutes per session: Not on file Stress: Not on file Relationships Social connections: Talks on phone: Not on file Gets together: Not on file Attends restorationism service: Not on file Active member of club or organization: Not on file Attends meetings of clubs or organizations: Not on file Relationship status: Not on file Intimate partner violence: Fear of current or ex partner: Not on file Emotionally abused: Not on file Physically abused: Not on file Forced sexual activity: Not on file Other Topics Concern Not on file Social History Narrative Jewish preference is Hoahaoism. Patient lives with family. Patient has 1 dog. Social History Substance and Sexual Activity Sexual Activity Yes Partners: Male control/protection: Pill Comment: last sexual intercourse 08/24/2019 Labs No new labs and No visits with results within 3 Month(s) from this visit. Latest known visit with results is: Nurse Visit on 05/24/2018 Component Date Value TSH 05/24/2018 2.21 FREE T4 05/24/2018 0.83 FREE T3 05/24/2018 2.62* Radiology No new radiology. Allergies Dolly has No Known Allergies. Medications Dolly has a current medication list which includes the following prescription(s): norgestimate-ethinyl estradiol and polyethylene glycol. Review of Systems Constitutional: Negative. HENT: Negative. Eyes: Negative. Respiratory: Negative. Breasts: Negative. Cardiovascular: Negative. Gastrointestinal: Negative. Genitourinary: Negative. Musculoskeletal: Negative. Skin: Negative. Neurological: Negative. Psychiatric/Behavioral: Negative. Endocrine: Endocrine negative BP 112/77 (BP Location: Right arm, Patient Position: Sitting, BP CUFF SIZE: Adult Medium) | Pulse 53 | Temp 36.5 C (97.7 F) (Oral) | Resp 16 | Ht 5' 3" (1.6 m) | Wt 124 lb (56.2 kg) | LMP 08/19/2019 (Approximate) | BMI 21.97 kg/m Pregravid BMI: Could not be calculated Physical Exam Vitals reviewed. Constitutional: She is oriented to person, place, and time. She appears well- developed. Her body habitus is normal. Neck: No tenderness and no mass. No thyroid nodules and no thyromegaly palpated. No neck adenopathy. Cardiovascular: Regular rate and rhythm. No gallop, no friction rub and no murmur auscultated. No peripheral edema present. Pulmonary/Chest: Breath sounds clear to auscultation. Normal inspiratory effort. Abdominal: Abdomen is soft. No mass palpated. No tenderness present. There is no hepatosplenomegaly,splenomegaly or hepatomegaly. There is no rigidity. No hernia palpated or inspected. Neuro/Psychiatric: She has a normal mood and affect. She is oriented to person, place, and time. Skin: No lesion, no rash and no ulceration present. Lymphadenopathy: No neck adenopathy present. No axillary adenopathy present. No inguinal adenopathy present. Genitourinary Comments: Waleska Madrid present during exam Breast: Right breast exhibits no mass, no nipple discharge and no tenderness. Left breast exhibits no mass, no nipple discharge and no tenderness. Breasts are symmetrical. Normal left breast and normalright breast Rectal: Rectal exam with normal anal tone. No mass, no external hemorrhoid and no internal hemorrhoid palpated or inspected. External genitalia: Normal external genitalia appropriate for age. Normal hair distribution. No labial lesion. Urethral meatus: Normal urethral meatus size, location and no lesion. No prolapse present. Normal urethral meatus Urethra: Normal urethra. No urethral tenderness, no mass and no urethral scarring palpated. Bladder: Bladder has no fullness, no mass palpated and no tenderness. Normal bladder Vagina:Normal vagina. No lesion inspected. Normal estrogen effect. Normal support. No abnormal vaginal discharge found. Cervix: Normal cervix. No lesion. No tenderness and no discharge present. Uterus: Uterus is normal size, normal contour, normal position and non-tender. Normal uterus Adnexa: Right adnexa without tenderness, ovary enlargement or mass. Left adnexa without tenderness, ovary enlargement or mass. Normal left adnexa and normal right adnexa Anus/perineum: Normal perineum and normal anus. Assessment/Plan Return to clinic in 1 year for WWE or sooner as needed Rubella/VZV: immune/pending BMI: 21 Td: 2012 Pap Smear: today Gardasil: na Mammogram/Guaiac/Colonoscopy :na Encounter for initial prescription of contraceptives, unspecified contraceptive (primary encounter diagnosis) Comment: routine Plan: POCT TEST Well woman exam Comment: routine Plan: PAP Smear-Liquid Based, HIGH RISK HPV-THIN PREP Encounter for other contraceptive management Comment: as ordered Plan: norgestimate-ethinyl estradiol (ORTHO TRI-CYCLEN, 28,) 0.18/0.215/0.25 mg-35 mcg (28) tablet Screening for thyroid disorder Comment: as ordered Plan: THYROID STIMULATING HORMONE, FREE T3, FREE T4 This visit did not involve counseling and coordination that comprised more than 50% of the visit time. MARCUS Coker 08/28/2019 11:12 AM Heather Pratt LVN - 08/28/2019 10:45 AM CDT34 year old presented to the clinic for WWE. 1) Previous BCM:OCPs-last dose 08/19/2019 2) Desired BCM: OCPs 3) LMP: 08/19/2019 4) Last [place]:08/24/2019 5) Last Pap: 09/28/2014 Results:negative 6) Tdap in last 10 years? 03/15/2012 HPV?unknown 7) C/O none 8) Patient denies history of physical, emotional, or sexual abuse. Patient states she currently feels safe at home. documented in this encounter Plan of Treatment Name Type Priority Associated Diagnoses Order S chedule THYROID STIMULATING LAB Routine Screening for thyroid Expected: 08/28/2019, HORMONE disorder Expires: 2020 FREE T3 LAB Routine Screening for thyroid Expect ed: 08/28/2019, disorder Expires: 2020 FREE T4 LAB Routine Screening for thyroid Expect ed: 08/28/2019, disorder Expires: 2020 PAP Smear-Liquid Based LAB Routine Well woman exam Ex pected: 08/28/2019, Expires: 2020 HIGH RISK HPV-THIN PREP LAB Routine Well woman exam E xpected: 08/28/2019, Expires: 2020 Health Maintenance Due Date Last Done Comments PAP SMEAR 09/28/2017 09/28/2014 INFLUENZA VACCINE (Season Ended) 2019 Depression Screening 08/27/2020 08/28/2019 VARICELLA VACCINES (1 of 2 - 08/27/2020 Pos tponed from 06/10/1984 2-dose childhood series) (Altern ative Guidelines) DTaP,Tdap,and Td Vaccines (2 - 03/15/2022 03/15/2012 Td) PNEUMOCOCCAL 0-64 YEARS COMBINED Aged Out No longer eligible based on SERIES patient's age to complete this topic documented as of this encounter Procedures Procedure Name Priority Date/Time Associated Diagnosis Comme nts POCT Routine 08/28/2019 10:47 Encounter for initial Results for this TEST AM CDT prescription of procedure ar e in contraceptives, the results unspecified section. contraceptive documented in this encounter Results POCT TEST (08/28/2019 10:47 AM CDT) Pathologist Sig nature POCT PREG Negative On board controls acceptable Yes with C Line POCT PREG LOT # POCT PREG TEST DATE Specimen Urine - URINE, CLEAN CATCH documented in this encounter Visit Diagnoses Diagnosis Encounter for initial prescription of co ntraceptives, unspecified contraceptive - Primary documented in this encounter Insurance Payer Benefit Plan Subscriber ID Effective Dates Phone Address Type / Group [employer]BS [facility] [id number] 2016-Jerry [phone] [address] PPO/POS [facility] [id number] [place] [address] documented as of this encounter Advance Directives Name Relationship Healthcare Agent Relationship Co mmunication David Garza Spouse Primary healthcare agent
--- OUTSIDE RECORDS SUMMARY | 2019-11-18 23:24 | XMS REPORT | Summary of Care ---
:1985 Author Organization [facility] - [facility] Address [address] [place] [address] Care Team Providers Name Role Phone Tisha Morton [facility] Primary Care Provider [phone] Reason for Visit Reason Comments Well Woman Exam Encounter Details Date Type Department Care Team Description 08/28/2019 Office Visit [facility]- Tisha Morton ounter for initial prescription of contraceptives, unspecified contraceptive (Primary Dx); [facility]; [address] Encounter for other contraceptive manage ment; Street EDWARDO A Screening for thyroid disorder [place] [address] 15 [phone] Allergies No Known Allergiesdocumented as [...] examination 10/30/2014 04/30/2017 Overview: ICD10 Diagnosis Term 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 Igualmente, puede preguntar sobre revenue inspector el embarazo, los implantes de seno o [...] sobre lo que es mejor para usted. [id number] [employer]. [address] [place] [address], [place] [address]. Todos los derechos reservados. Esta informacin no pretende sustituir la atencin mdica profesional. Slo carbajal mdico puede diagnosticar y tratar un problema de caren. Patient Education Caren de los senos: Conocimiento de los propios senos Qu es el conocimiento de los propios senos? El conocimiento de los propios senos es saber revenue inspector se monserrat y se sienten normalmente janene senos. Janene senos cambian a lo glenn de las diferentes etapas de la niraj. Por eso, es importante saber qu es lo normal en el jiason de janene senos. Conocer janene propios senos [...] servicios preventivos en EE. UU.) y el [place] Congress of Obstetricians and Gynecologists(Colegio Americano de [...] benignos. Eso significa que no son cancerosos. [phone] [employer]. [address] [place] [address], [place] [address]. Todos los derechos reservados. Esta informacin no [...] de deteccin no son pruebas de diagnstico, larry se usan para decidir si se deben [...] simon que 120/80mmHg Si la lectura de carbajla presin arterial es ms ru que lo [...] Consulte a carbajal proveedor de atencin mdica [place] Todas las mujeres de tabatha gonsalo de [...] ttanos/difteria/tos ferina (Td/Tdap) Todas las mujeres de taabtha gonsalo de edad Td cada mustapha aos [...] de edad Todas las visitas 1Segn la [place] Cancer Society, las mujeres entre los 20 [...] vacunas de rescate recomendadas por los CDC. [phone] [employer]. [address] [place] [address]. All rights reserved. This information is not [...] importante Compre condones lubricados o utilice lubricante. Gardi ofrece mayor comodidad y reduce el riesgo [...] del condn a medida que lo extrae. Gardi evitar que se le salga el condn. [...] puede philippe ahora para proteger carbajal futuro. [phone] [employer]. [address] [place] [address]. Todos los derechos reservados. Esta informacin no pretende sustituir la atencin mdica profesional. Slo carbajal mdico puede diagnosticar y tratar un problema de caren. Patient Education Qu es el VIH y el SIDA Es importante saber revenue inspector puede entrar el VIH en el cuerpo [...] a carbajal proveedor de atencin mdica sobre revenue inspector protegerse a usted mismo y asus seres queridos contra el contagio del VIH. Sanitation Worker evoluciona la infeccin por el VIH Despus [...] de que el virus entra al organismo. Gardi se denomina sndrome retroviral amilcar. Los sntomas [...] atacar al cerebro y al sistema nervioso. Gardi causa convulsiones y prdida de lamemoria y el movimiento corporal. Tambin afecta muchas otras partes del cuerpo. Gardi genera problemas gentry anemia, recuento bajo de glbulos blancos, diarrea, dolor estomacal, problemas en la piel ymuchos otros. Sanitation Worker entra el VIH al cuerpo El VIH [...] el momento del parto o al amamantarlo. [phone] [employer]. [address] [place] [address]. Todos los derechos reservados. Esta informacin no [...] alimentos y los saboresque ms le gustan. Sanitation Worker comenzar Hable con carbajal proveedor de atencin [...] pruebe albahaca, cilantro, perry, radha y yarbrough. [phone] [employer] [place] [address]. Todos los derechos reservados. Esta informacin no pretende sustituir la atencin mdica profesional. Slo carbajal mdico puede diagnosticar y tratar un problema de caren. Patient Education Sanitation Worker entender MiPlato ([place]DA) El Departamento de Agricultura de los [place] Un[place] (USDA por janene siglas en [facility]) weinstein emitido unaserie de pautas para ayudarle a elegir radha janene comidas bajo el nombre de MiPlato (MyPlate en [facility]). MiPlato muestra los grupos de alimentos que [...] de granos jenise parte de tabatha gonsalo. Gardi incluye panes, pasta, cereales, tortillas y grits [...] esta cantidad de los alimentos que come. 4501-1718 [employer]. [address] [place] [address]. Todos los derechos reservados. Esta informacin no pretende sustituir la atencin mdica profesional. Slo carbajal mdico puede diagnosticar y tratar un problema de caren. documented in this encounter Progress Notes Tisha Morton, [facility] - 08/28/2019 10:45 AM CDT Chief complaint: [...] file Gets together: Not on file Attends spiritism service: Not on file Active member of [...] Concern Not on file Social History Narrative Advent preference is Jainism. Patient lives with family. Patient has 1 [...] No inguinal adenopathy present. Genitourinary Comments: Waleska Madird present during exam Breast: Right breast exhibits [...] visit time. MARCUS Coker 08/28/2019 11:12 AM Heatehr Pratt LVN - 08/28/2019 10:45 AM CDT34 year old presented to the clinic for WWE. 1) Previous BCM:OCPs-last dose 08/19/2019 2) Desired BCM: OCPs 3) LMP: 08/19/2019 4) Last [place]:08/24/2019 5) Last Pap: 09/28/2014 Results:negative 6) Tdap in last 10 years? 03/15/2012 HPV?unknown 7) C/O none 8) Patient denies history of physical, emotional, or sexual abuse. Patient states she currently feels safe at home. documented in this encounter Plan of Treatment Name Type Priority Associated Diagnoses Date/Ti me THYROID STIMULATING LAB Routine Screening for thyroid 08/28/2019 11:18 AM HORMONE disorder CDT FREE T3 LAB Routine Screening for thyroid 2019 11:18 AM disorder CDT FREE T4 LAB Routine Screening for thyroid 2019 11:18 AM disorder CDT PAP Smear-Liquid Based LAB Routine Well woman exam 11:18 AM CDT HIGH RISK HPV-THIN PREP LAB Routine Well woman exam 0 08/28/2019 11:18 AM CDT Name Type Priority Associated Diagnoses Order S [...] Effective Dates Phone Address Type / Group [facility] [id number] 2016-Jerry [phone] [address] PPO/POS [place] t 7 [id number] [place] [address] documented as of this encounter Advance Directives Name Relationship Healthcare Agent Relationship Co mmunication David Garza Spouse Primary healthcare agent
--- OUTSIDE RECORDS SUMMARY | 2019-11-18 23:24 | XMS REPORT | Summary of Care ---
:1985 Author Organization [facility] Address [address] [place] [address] Care Team Providers Name Role Phone Tisha Morton [facility] Primary Care Provider Reason for Visit Reason Comments Refill Request Encounter Details Date Type Department Care Team Description [facility] [address] [place] [address] [phone] [place] A [place], [place] [address] [phone] Allergies No Known Allergiesdocumented as of this encounter (statuses as of 10/23/2019) Medications Medication Sig Dispensed Refills Start Date End Date Status polyethylene glycol 1 capful PO qd 238 g 2 08/23/2017 Active (MIRALAX) 17 prn, dissolve gram/dose in 4-8oz of powderIndications: liquid Constipation, unspecified constipation type NORGESTIMATE-ETHINY TAKE 1 TABLET 28 tablet 12 10/23/2019 Active L ESTRADIOL BY MOUTH EVERY 0.18/0.215/0.25 DAY mg-35 mcg (28) tabletIndications: Encounter for other contraceptive management norgestimate-ethiny Take 1 tablet 1 Package 11 08/28/201910/22 Discontinued l estradiol (ORTHO by mouth TRI-CYCLEN, 28,) daily. 0.18/0.215/0.25 mg-35 mcg (28) tabletIndications: Encounter for other contraceptive management documented as of this encounter (statuses as of 10/23/2019) Active Problems Problem Noted Date Well woman exam 05/23/2018 Contraceptive management 05/23/2018 documented as of this encounter (statuses as of 10/23/2019) Resolved Problems Problem Noted Date Resolved Date Postcoital bleeding 04/30/2017 05/23/2018 Pain pelvic 06/12/2016 04/30/2017 Family planning, BCP ( control pills) maintenance 12/2804/30/2017 Encounter for routine gynecological examination 10/30/2014 04/30/2017 Overview: ICD10 Diagnosis Term Improvement Auditor Utility Other general counseling and advice for contraceptive 201404/30/2017 management BCP ( control pills) initiation 10/29/2014 Postcoital bleeding 10/29/2014 04/28/2016 Irregular menstrual cycle 10/07/2014 04/28/2016 documented as of this encounter (statuses as of 10/23/2019) Immunizations Name Administration Dates Next Due TDAP 03/15/2012 documented as of this encounter Social History Tobacco Use Types Packs/Day Years Used Date Never Smoker Smokeless Tobacco: Never Used Alcohol Use Drinks/Week oz/Week Comments No 0 Standard drinks or equivalent 0.0 Sex Assigned at Date Recorded Not on file documented as of this encounter Last Filed Vital Signs Not on filedocumented in this encounter Plan of Treatment Health Maintenance Due Date Last Done Comments INFLUENZA VACCINE (#1) 2019 Depression Screening 08/27/2020 08/28/2019 VARICELLA VACCINES (1 of 2 - 08/27/2020 Pos tponed from 06/10/1984 2-dose childhood series) (Altern ative Guidelines) DTaP,Tdap,and Td Vaccines (2 03/15/2022 03/15/2012 - Td) PAP SMEAR 08/27/2022 08/28/2019, 09/28/2014 PNEUMOCOCCAL 0-64 YEARS Aged Out No longe r eligible based COMBINED SERIES on patient's age to [facility] documented as of this encounter Results Not on filedocumented in this encounter Visit Diagnoses Diagnosis Encounter for other contraceptive manage ment documented in this encounter Insurance Payer Benefit Plan Subscriber ID Effective Dates Phone Address Type / Group [facility] [id number] 2016-Jerry [phone] [address] PPO/POS [facility] [id number] [place] [address] documented as of this encounter Advance Directives Name Relationship Healthcare Agent Relationship Co mmunication David Garza Spouse Health Care Agent
--- OUTSIDE RECORDS SUMMARY | 2019-11-18 23:24 | XMS REPORT | Summary of Care ---
:1985 Author Organization [facility] - [facility] Address [address] [place] [address] Care Team Providers Name Role Phone Tisha Morton [facility] Primary Care Provider [phone] Reason for Visit Reason Comments Well Woman Exam Encounter Details Date Type Department Care Team Description 08/28/2019 Office Visit [facility]- Tisha Morton ounter for initial prescription of contraceptives, unspecified contraceptive (Primary Dx); [facility]; [address] Encounter for other contraceptive manage ment; Street EDWARDO A Screening for thyroid disorder [place] [phone] Allergies No Known Allergiesdocumented as [...] examination 10/30/2014 04/30/2017 Overview: ICD10 Diagnosis Term 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 Igualmente, puede preguntar sobre watch supervisor el embarazo, los implantes de seno o [...] sobre lo que es mejor para usted. [phone] [employer]. [address] [place] [address], [place] [address]. Todos los derechos reservados. Esta informacin no pretende sustituir la atencin mdica profesional. Slo carbajal mdico puede diagnosticar y tratar un problema de caren. Patient Education Caren de los senos: Conocimiento de los propios senos Qu es el conocimiento de los propios senos? El conocimiento de los propios senos es saber watch supervisor se monserrat y se sienten normalmente janene [...] servicios preventivos en EE. UU.) y el [place] Congress of Obstetricians and Gynecologists(Colegio Americano de [...] benignos. Eso significa que no son cancerosos. [phone] [employer]. [address] [place] [address], [place] [address]. Todos los derechos reservados. Esta informacin no [...] Consulte a carbajal proveedor de atencin mdica [place] Todas las mujeres de tabatha gonsalo de [...] de edad Todas las visitas 1Segn la [place] Cancer Society, las mujeres entre los 20 [...] vacunas de rescate recomendadas por los CDC. [phone] [employer]. [address] [place] [address]. All rights reserved. This information is not [...] importante Compre condones lubricados o utilice lubricante. [place] ofrece mayor comodidad y reduce el riesgo [...] del condn a medida que lo extrae. [place] evitar que se le salga el condn. [...] puede philippe ahora para proteger carbajal futuro. 8566-5412 [employer]. [address] [place] [address]. Todos los derechos reservados. Esta informacin no pretende sustituir la atencin mdica profesional. Slo carbajal mdico puede diagnosticar y tratar un problema de caren. Patient Education Qu es el VIH y el SIDA Es importante saber watch supervisor puede entrar el VIH en el cuerpo y qu pasa real vez que haya entrado. Entonces, estar mejor preparado para protegerse a usted mismo y a otros contra tabatha virus. Real personaque tiene el VIH puede verse y sentirse perfectamente. Larry geeta persona puede contagiar de VIH a otros jeninngs pronto est infectado. Si mantiene relaciones sexuales inseguras y sin proteccin, o comparte agujas, corre el riesgo de contraer el VIH. Consulte a carbajal proveedor de atencin mdica sobre watch supervisor protegerse a usted mismo y asus seres queridos contra el contagio del VIH. Clinical Support Specialist evoluciona la infeccin por el VIH Despus [...] de que el virus entra al organismo. [place] se denomina sndrome retroviral amilcar. Los sntomas [...] atacar al cerebro y al sistema nervioso. [place] causa convulsiones y prdida de lamemoria y el movimiento corporal. Tambin afecta muchas otras partes del cuerpo. [place] genera problemas gentry anemia, recuento bajo de glbulos blancos, diarrea, dolor estomacal, problemas en la piel ymuchos otros. Clinical Support Specialist entra el VIH al cuerpo El VIH [...] el momento del parto o al amamantarlo. [phone] [employer]. [address] [place] [address]. Todos los derechos reservados. Esta informacin no [...] manejarsu peso, janene niveles de colesterol y acrbajal presin arterial. Aqu encontrar consejos para hacer cambios en carbajal dieta que le harn radha a carbajal corazn sin dejar de lado todos los alimentos y los saboresque ms le gustan. Clinical Support Specialist comenzar Hable con carbajal proveedor de atencin [...] pruebe albahaca, cilantro, perry, radha y yarbrough. 9822-[address] [employer] [place] [address]. Todos los derechos reservados. Esta informacin no pretende sustituir la atencin mdica profesional. Slo carbajal mdico puede diagnosticar y tratar un problema de caren. Patient Education Clinical Support Specialist entender MiPlato ([place]) El Departamento de Agricultura de los Estados Unidos (USDA por janene siglas en [facility]) weinstein emitido unaserie de pautas para ayudarle a elegir radha janene comidas bajo el nombre de MiPlato (MyPlate en [facility]). MiPlato muestra los grupos de alimentos que [...] de granos jenise parte de tabatha gonsalo. [place] incluye panes, pasta, cereales, tortillas y grits [...] esta cantidad de los alimentos que come. [phone] [employer]. [address] [place] [address]. Todos los derechos reservados. Esta informacin no pretende sustituir la atencin mdica profesional. Slo carbajal mdico puede diagnosticar y tratar un problema de caren. documented in this encounter Progress Notes Tisha Morton, [facility] - 08/28/2019 10:45 AM CDT Chief [...] Births 3 # Outcome Date GA Lbr Jutsin/2nd Weight Sex Delivery Anes PTL Lv 3 [...] file Gets together: Not on file Attends islam service: Not on file Active member of [...] Concern Not on file Social History Narrative Christianity preference is Yarsani. Patient lives with family. Patient has 1 [...] BCM: OCPs 3) LMP: 08/19/2019 4) Last [place]:08/24/2019 5) Last Pap: 09/28/2014 Results:negative 6) Tdap [...] Effective Dates Phone Address Type / Group [facility] [id number] 2016-Jerry [phone] [address] PPO/POS [place] t [phone] [place] [address] documented as of this encounter Advance Directives Name Relationship Healthcare Agent Relationship Co mmunication David Garza Spouse Primary healthcare agent
--- OUTSIDE RECORDS SUMMARY | 2019-11-18 23:24 | XMS REPORT | Summary of Care ---
:1985 Author Organization [facility] Address [address] [place] [address] Care Team Providers Name Role Phone Tisha Morton [facility] Primary Care Provider [phone] Reason for Visit Reason Comments Well Woman Exam Encounter Details Date Type Department Care Team Description 08/28/2019 Office Visit [facility]- Tisha Morton ounter for initial prescription of contraceptives, unspecified contraceptive (Primary Dx); [facility]; [address] Encounter for other contraceptive manage ment; Street EDWARD[address] A Screening for thyroid disorder [place] [phone] Allergies No Known Allergiesdocumented as [...] examination 10/30/2014 04/30/2017 Overview: ICD10 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 Igualmente, puede preguntar sobre ironer sock el embarazo, los implantes de seno o [...] sobre lo que es mejor para usted. [phone] [employer]. [address] [place] [address], [place] [address]. Todos los derechos reservados. Esta informacin no pretende sustituir la atencin mdica profesional. Slo carbajal mdico puede diagnosticar y tratar un problema de caren. Patient Education Caren de los senos: Conocimiento de los propios senos Qu es el conocimiento de los propios senos? El conocimiento de los propios senos es saber ironer sock se monserrat y se sienten normalmente janene [...] servicios preventivos en EE. UU.) y el [place] Congress of Obstetricians and Gynecologists(Colegio Americano de [...] benignos. Eso significa que no son cancerosos. [phone] [employer]. [address] [place] [address], [place] [address]. Todos los derechos reservados. Esta informacin no [...] Consulte a carbajal proveedor de atencin mdica [place] Todas las mujeres de tabatha gonsalo de [...] de edad Todas las visitas 1Segn la [place] Cancer Society, las mujeres entre los 20 [...] vacunas de rescate recomendadas por los CDC. [phone] [employer]. [address] [place] [address]. All rights reserved. This information is not [...] importante Compre condones lubricados o utilice lubricante. [place] ofrece mayor comodidad y reduce el riesgo [...] del condn a medida que lo extrae. [place] evitar que se le salga el condn. [...] puede philippe ahora para proteger carbajal futuro. [phone] [employer]. [address] [place] [address]. Todos los derechos reservados. Esta informacin no pretende sustituir la atencin mdica profesional. Slo carbajal mdico puede diagnosticar y tratar un problema de caren. Patient Education Qu es el VIH y el SIDA Es importante saber ironer sock puede entrar el VIH en el cuerpo [...] a carbajal proveedor de atencin mdica sobre ironer sock protegerse a usted mismo y asus seres queridos contra el contagio del VIH. Shade Bander evoluciona la infeccin por el VIH Despus [...] de que el virus entra al organismo. [place] se denomina sndrome retroviral amilcar. Los sntomas [...] atacar al cerebro y al sistema nervioso. [place] causa convulsiones y prdida de lamemoria y el movimiento corporal. Tambin afecta muchas otras partes del cuerpo. [place] genera problemas gentry anemia, recuento bajo de glbulos blancos, diarrea, dolor estomacal, problemas en la piel ymuchos otros. Shade Bander entra el VIH al cuerpo El VIH [...] el momento del parto o al amamantarlo. [phone] [employer]. [address] [place] [address]. Todos los derechos reservados. Esta informacin no [...] alimentos y los saboresque ms le gustan. Shade Bander comenzar Hable con carbajal proveedor de atencin [...] grille, cocine al vapor o en microondas carbajla comida sin agregarle grasas. Elija ingredientes que le den sabor a janene comidas sin cargarla con caloras, grasa o sodio. Pruebe los siguientes ingredientes: rbano picante, salsa picante, limn, mostaza, aderezos sin grasa para ensaladas y vinagre. Si desea hierbas y especias sin gray, pruebe albahaca, cilantro, perry, radha y yarbrough. [phone] [employer] [place] [address]. Todos los derechos reservados. Esta informacin no pretende sustituir la atencin mdica profesional. Slo carbajal mdico puede diagnosticar y tratar un problema de caren. Patient Education Shade Bander entender MiPlato (USDA) El Departamento de Agricultura de los Estados Unidos (USDA por janene siglas en [facility]) weinstein emitido unaserie de pautas para ayudarle a elegir radha janene comidas bajo el nombre de MiPlato (MyPlate en [facility]). MiPlato muestra los grupos de alimentos que [...] de granos jenise parte de tabatha gonsalo. [place] incluye panes, pasta, cereales, tortillas y grits [...] esta cantidad de los alimentos que come. [phone] [employer]. [address] [place] [address]. Todos los derechos reservados. Esta informacin no pretende sustituir la atencin mdica profesional. Slo carbajal mdico puede diagnosticar y tratar un problema de caren. documented in this encounter Progress Notes Tisha Morton, [facility] - 08/28/2019 10:45 AM CDT Chief [...] file Gets together: Not on file Attends christian service: Not on file Active member of [...] Concern Not on file Social History Narrative Congregation preference is Faith. Patient lives with family. Patient has 1 [...] BCM: OCPs 3) LMP: 08/19/2019 4) Last [place]:08/24/2019 5) Last Pap: 09/28/2014 Results:negative 6) Tdap [...] Effective Dates Phone Address Type / Group [facility] [id number] 2016-Jerry [phone] [address] PPO/POS [place] [id number] [place] [address] documented as of this encounter Advance Directives Name Relationship Healthcare Agent Relationship Co mmunication David Garza Spouse Primary healthcare agent
--- OUTSIDE RECORDS SUMMARY | 2019-11-18 23:24 | XMS REPORT | Summary of Care ---
:1985 Author Organization [facility] Address [address] [place] [id number] Care Team Providers Name Role Phone Tisha Morton [facility] Primary Care Provider [phone] Reason for Visit Reason Comments Well Woman Exam Encounter Details Date Type Department Care Team Description 08/28/2019 Office Visit [facility]- Tisha Morton ounter for initial prescription of contraceptives, unspecified contraceptive (Primary Dx); [facility]; [address] Encounter for other contraceptive manage ment; Street [address] A Screening for thyroid disorder [place] [phone] Allergies No Known Allergiesdocumented as [...] examination 10/30/2014 04/30/2017 Overview: ICD10 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 Igualmente, puede preguntar sobre strategic advisor el embarazo, los implantes de seno o [...] sobre lo que es mejor para usted. [id number] [employer]. [address] [place] [address], [place] [address]. Todos los derechos reservados. Esta informacin no pretende sustituir la atencin mdica profesional. Slo carbajal mdico puede diagnosticar y tratar un problema de caren. Patient Education Caren de los senos: Conocimiento de los propios senos Qu es el conocimiento de los propios senos? El conocimiento de los propios senos es saber strategic advisor se monserrat y se sienten normalmente janene [...] ahora que las mujeres deberan conocer mejor jnaene senos en lugar de hacerse unautoexamen de los senos (BSE, por janene siglas en ingls). Tales expertos son, por ejemplo, la Sociedad Americana contra el Cncer, el U.S. Preventive Services Task Force (USPSTF, Gonsalo de tareas dedicado a los servicios preventivos en EE. UU.) y el [place] Congress of Obstetricians and Gynecologists(Colegio Americano de [...] benignos. Eso significa que no son cancerosos. [id number] [employer]. [address] [place] [address], [place] [address]. Todos los derechos reservados. Esta informacin no [...] deben realizar otros estudios. La consejera sobre carbjaal caren tambin es esencial. A continuacin, zach [...] Consulte a carbajal proveedor de atencin mdica [place] Todas las mujeres de tabatha gonsalo de [...] de edad Todas las visitas 1Segn la [place] Cancer Society, las mujeres entre los 20 [...] vacunas de rescate recomendadas por los CDC. [phone] [employer]. [address] [place] [address]. All rights reserved. This information is not [...] importante Compre condones lubricados o utilice lubricante. [place] ofrece mayor comodidad y reduce el riesgo [...] del condn a medida que lo extrae. [place] evitar que se le salga el condn. Antes de utilizar un condn, verifique carbajal fecha de vencimiento. No guarde los condones en lugares que puedan calentarse, gentry el auto o la billetera que se llevaen un bolsillo trasero. Conozca a carbajal jazmin Las relaciones sexuales seguras representan un proceso que supone llegar a conocer radha a la jazimn y philippe decisiones informadas. Es importante hablar [...] puede philippe ahora para proteger carbajal futuro. [phone] [employer]. [address] [place] [address]. Todos los derechos reservados. Esta informacin no pretende sustituir la atencin mdica profesional. Slo carbajal mdico puede diagnosticar y tratar un problema de caren. Patient Education Qu es el VIH y el SIDA Es importante saber strategic advisor puede entrar el VIH en el cuerpo [...] a carbajal proveedor de atencin mdica sobre strategic advisor protegerse a usted mismo y asus seres queridos contra el contagio del VIH. Finishing Range Operator evoluciona la infeccin por el VIH Despus [...] de que el virus entra al organismo. [place] se denomina sndrome retroviral amilcar. Los sntomas [...] atacar al cerebro y al sistema nervioso. [place] causa convulsiones y prdida de lamemoria y el movimiento corporal. Tambin afecta muchas otras partes del cuerpo. [place] genera problemas gentry anemia, recuento bajo de glbulos blancos, diarrea, dolor estomacal, problemas en la piel ymuchos otros. Finishing Range Operator entra el VIH al cuerpo El VIH [...] el momento del parto o al amamantarlo. [phone] [employer]. [address] [place] [address]. Todos los derechos reservados. Esta informacin no [...] alimentos y los saboresque ms le gustan. Finishing Range Operator comenzar Hable con carbajal proveedor de atencin [...] porque bajansu colesterol kaye adems de subir acrbajal colesterol chasity. Las grasas trans se encuentran [...] pruebe [place], cilantro, [place], radha y yarbrough. [phone] [id number] [place] [address]. Todos los derechos reservados. Esta informacin no pretende sustituir la atencin mdica profesional. Slo carbajal mdico puede diagnosticar y tratar un problema de caren. Patient Education Finishing Range Operator entender MiPlato (USDA) El Departamento de Agricultura de los Estados Unidos (USDA por janene siglas en [facility]) weinstein emitido unaserie de pautas para ayudarle a elegir radha janene comidas bajo el nombre de MiPlato (MyPlate en [facility]). MiPlato muestra los grupos de alimentos que [...] de granos jenise parte de tabatha gonsalo. [place] incluye panes, pasta, cereales, tortillas y grits [...] esta cantidad de los alimentos que come. [phone] [employer]. [address] [place] [address]. Todos los derechos reservados. Esta informacin no pretende sustituir la atencin mdica profesional. Slo carbajal mdico puede diagnosticar y tratar un problema de caren. documented in this encounter Progress Notes Tisha Morton, [facility] - 08/28/2019 10:45 AM CDT Chief complaint: [...] file Gets together: Not on file Attends mormonism service: Not on file Active member of [...] Concern Not on file Social History Narrative Jehovah'S Witness preference is Jew. Patient lives with family. Patient has 1 [...] BCM: OCPs 3) LMP: 08/19/2019 4) Last [place]:08/24/2019 5) Last Pap: 09/28/2014 Results:negative 6) Tdap [...] Dates Phone Address Type / Group [facility] [id number] 2016-Jerry [phone] [address] PPO/POS [facility] [id number] [place] [address] documented as of this encounter Advance Directives Name Relationship Healthcare Agent Relationship Co mmunication David Garza Spouse Primary healthcare agent
[2019-11-18 23:44] LABS: Basophils % 0.4 % (0-1.3); Hematocrit 38.3 % (36.0-45.0); Lymphocytes % 49.1 % (15.3-44.8); MPV 8.1 fL (7.6-11.3); RBC Red Blood Cell Count 3.98 M/uL (3.86-4.86)
[2019-11-18] MEDS ORDERED: NA CHLORIDE 0.9% 1,000 ML ONE (23:47)
[2019-11-18] MEDS ORDERED: DIPHENOX/ATROP SULF 1 TAB PO ONE (23:47)
[2019-11-19 00:01] LABS: ALT/SGPT 144 U/L (12-78); Albumin 4.2 g/dL (3.4-5.0); Alkaline Phosphatase 60 U/L (45-117); BUN Blood Urea Nitrogen 14 mg/dL (7-18); Bicarbonate 27 mmol/L (21-32); Bilirubin Direct < 0.1 mg/dL (0-0.2); Bilirubin Total 0.2 mg/dL (0.2-1.0); Glucose Level 99 mg/dL (74-106); Lipase 191 U/L (73-393); Protein, Total 8.3 g/dL (6.4-8.2); Sodium Level 141 mmol/L (136-145)
[2019-11-19 00:02] LABS: AST/SGOT 60 U/L (15-37); Potassium 3.8 mmol/L (3.5-5.1)
[2019-11-19 00:06] LABS: Blood Morphology Comment NOT SEEN (NOT SEEN); Platelet Estimate ADEQ
--- NOTE | 2019-11-19 00:47 | ER ---
Nurse's Notes [facility] Name: Dolly Garza Age: 34 yrs Sex: Female : 1985 Arrival Date: 11/18/2019 Time: 23:22 Bed 8 Private MD: Diagnosis: Diarrhea, unspecified Presentation: 11/17 23:35 Chief complaint: Patient states: Reports she has been having bloody diarrhea for the ea past year reports the last month her symptoms worsened. Reports these past few days she has been having just diarrhea and bright red blood. Coronavirus screen: At this time, the client does not indicate any symptoms associated with coronavirus-19. Ebola Screen: No symptoms or risks identified at this time. Initial Sepsis Screen: Does the patient meet any 2 criteria? No. Patient's initial sepsis screen is negative. Does the patient have a suspected source of infection? No. Patient's initial sepsis screen is negative. Risk Assessment: Do you want to hurt yourself or someone else? Patient reports no desire to harm self or others. Onset of symptoms was November 18, 2019. 23:35 Method Of Arrival: Ambulatory ea 23:35 Acuity: CYNTHIA 3 ea Triage Assessment: 23:38 General: Appears in no apparent distress. Behavior is calm, cooperative, appropriate ea for age. Pain: Complains of pain in left lower quadrant. GI: Abdomen is non-distended. Derm: Skin is pink, warm \T\ dry. 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 - Social history:: Smoking status: Patient denies any tobacco usage or history of. Screenin:37 Abuse screen: Denies threats or abuse. Abuse screen: Denies threats or abuse. ea Nutritional screening: No deficits noted. Tuberculosis screening: No symptoms or risk factors identified. Fall Risk None identified. Assessment: 23:39 General: Appears in no apparent distress. Behavior is calm, cooperative, appropriate ea for age. Pain: Complains of pain in left lower quadrant. Neuro: Level of Consciousness is awake, alert, obeys commands, Oriented to person, place, time, situation. Respiratory: Airway is patent Respiratory effort is even, unlabored, Respiratory pattern is regular, symmetrical. Derm: Skin is pink, warm \T\ dry. 11/18 01:14 Reassessment: Patient appears in no apparent distress at this time. Patient is alert, lp1 oriented x 3, equal unlabored respirations, skin warm/dry/pink. Vital Signs: 11/17 23:35 BP 139 / 101; Pulse 71; Resp 18; Temp 98.4; Pulse Ox 100% ; Weight 52.62 kg; Height 5 ea ft. 3 in. (160.02 cm); 11/18 01:10 BP 115 / 86; Pulse 60; Resp 18; Pulse Ox 99% on R/A; lp1 11/17 23:35 Body Mass Index 20.55 (52.62 kg, 160.02 cm) ea ED Course: 11/17 23:22 Patient arrived in ED. bp1 23:29 Trent Hernández MD is Attending Physician. tw4 23:34 Hepatic Function Sent. ds4 23:35 Kristy Santamaria, JAYME is Primary Nurse. ea 23:37 Triage completed. ea 23:37 Patient has correct armband on for positive identification. Placed in gown. Bed in low ea position. Side rails up X2. 23:38 Inserted saline lock: 20 gauge in right antecubital area, using aseptic technique. mg2 Blood collected. 23:38 Arm band placed on right wrist. Patient placed in an exam room, on a stretcher, on ea pulse oximetry. 11/18 01:11 No provider procedures requiring assistance completed. IV discontinued, No lp1 redness/swelling at site. Pressure dressing applied. Administered Medications: 00:06 Drug: LoMOTIL 2 tabs Route: PO; mg2 01:15 Follow up: Response: No adverse reaction lp1 00:06 Drug: NS 0.9% 1000 ml Route: IV; Rate: 1 bolus; Site: right antecubital; mg2 01:15 Follow up: IV Status: Completed infusion; IV Intake: 1000ml lp1 01:04 Drug: Flagyl 500 mg Route: PO; mg2 01:14 Follow up: Response: No adverse reaction lp1 Intake: 01:15 IV: 1000ml; Total: 1000ml. lp1 Outcome: 00:46 Discharge ordered by . tw4 01:13 Discharged to home ambulatory. lp1 01:13 Condition: good 01:13 Discharge instructions given to patient, Instructed on discharge instructions, follow up and referral plans. medication usage, Demonstrated understanding of instructions, follow-up care, medications, Prescriptions given X 2. 01:15 Patient left the ED. lp1 Signatures: Scarlet Pruitt, RN RN lp1 Kobi Olmos ds4 Kristy Santamaria RN RN ea Wadley, Terrence, MD MD tw4 Cedrick Sandhu RN RN [facility] Evy Merlos [facility]
--- NOTE | 2019-11-19 00:47 | EDPHYS ---
Physician Documentation [facility] Name: Dolly Garza Age: 34 yrs Sex: Female : 1985 Arrival Date: 11/18/2019 Time: 23:22 Bed 8 Private MD: ED Physician Trent Hernnádez HPI: 11/18 06:54 This 34 yrs old Female presents to ER via Ambulatory with complaints of tw4 Abdominal Pain, Rectal Bleeding. 06:54 The patient presents to the emergency department with diarrhea. Possible causes: tw4 unknown. The symptoms are aggravated by nothing. The symptoms are alleviated by nothing. Associated signs and symptoms: The patient has no apparent associated signs or symptoms. Severity of symptoms: At their worst the symptoms were moderate in the emergency department the symptoms are unchanged. The patient has not experienced similar symptoms in the past. 06:55 Onset: The symptoms/episode began/occurred 2 month(s) ago. 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 - Social history:: Smoking status: Patient denies any tobacco usage or history of. ROS: 11/18 06:54 Constitutional: Negative for fever, chills, and weight loss, Eyes: Negative for injury, tw4 pain, redness, and discharge, Cardiovascular: Negative for chest pain, palpitations, and edema, Respiratory: Negative for shortness of breath, cough, wheezing, and pleuritic chest pain, Back: Negative for injury and pain, MS/Extremity: Negative for injury and deformity, Skin: Negative for injury, rash, and discoloration, Neuro: Negative for headache, weakness, numbness, tingling, and seizure. Abdomen/GI: Positive for diarrhea, rectal bleeding. Exam: 06:54 Constitutional: This is a well developed, well nourished patient who is awake, alert, tw4 and in no acute distress. Head/Face: Normocephalic, atraumatic. Chest/axilla: Normal chest wall appearance and motion. Nontender with no deformity. No lesions are appreciated. Cardiovascular: Regular rate and rhythm with a normal S1 and S2. No gallops, murmurs, or rubs. Normal PMI, no JVD. No pulse deficits. Respiratory: Lungs have equal breath sounds bilaterally, clear to auscultation and percussion. No rales, rhonchi or wheezes noted. No increased work of breathing, no retractions or nasal flaring. 06:54 Abdomen/GI: Inspection: 06:55 Skin: Warm, dry with normal turgor. Normal color with no rashes, no lesions, and no tw4 evidence of cellulitis. MS/ Extremity: Pulses equal, no cyanosis. Neurovascular intact. Full, normal range of motion. Neuro: Awake and alert, GCS 15, oriented to person, place, time, and situation. Cranial nerves II-XII grossly intact. Motor strength 5/5 in all extremities. Sensory grossly intact. Cerebellar exam normal. Normal gait. Vital Signs: 11/17 23:35 BP 139 / 101; Pulse 71; Resp 18; Temp 98.4; Pulse Ox 100% ; Weight 52.62 kg; Height 5 ea ft. 3 in. (160.02 cm); 11/18 01:10 BP 115 / 86; Pulse 60; Resp 18; Pulse Ox 99% on R/A; lp1 11/17 23:35 Body Mass Index 20.55 (52.62 kg, 160.02 cm) ea MDM: 11/17 23:29 Patient medically screened. tw4 11/18 06:56 Differential diagnosis: Nonspecific abd pain, gastritis, cholecystitis. Data reviewed: tw4 vital signs, nurses notes. Data interpreted: Pulse oximetry: Interpretation: normal. Counseling: I had a detailed discussion with the patient and/or guardian regarding: the historical points, exam findings, and any diagnostic results supporting the discharge/admit diagnosis. Medication response: lomotil. Response to treatment: and as a result, I will discharge patient. Special discussion: I discussed with the patient/guardian in detail that at this point there is no indication for admission to the hospital. It is understood, however, that if the symptoms persist or worsen the patient needs to return immediately for re-evaluation. 11/17 23:29 Order name: Basic Metabolic Panel; Complete Time: 00:42 tw4 11/18 00:42 Interpretation: Normal except: CL 108; GFR 75. tw4 11/17 23:29 Order name: CBC with Diff; Complete Time: 00:42 tw 11/18 00:42 Interpretation: Normal except: GERDA% 41.5; LYM% 49.1. 11/17 23:29 Order name: Hepatic Function; Complete Time: 00:42 tw4 11/18 00:42 Interpretation: Normal except: AST 60; ALT 144; TP 8.3; GLOB 4.1; A/G 1.0. [facility] 11/17 23:29 Order name: Lipase; Complete Time: 00:42 tw4 11/18 00:43 Interpretation: Within normal limits: LIP 191. [facility] 11/17 23:47 Order name: Manual Differential; Complete Time: 00:42 EDMS 09 00:43 Interpretation: Normal except: LYM 49; SEGS 37. [facility] 11/18 00:38 Order name: Fecal Leukocyte Stain [facility] 11/17 23:29 Order name: IV Saline Lock; Complete Time: 23:33 [facility] 11/18 00:38 Order name: Stool Culture [facility] 11/18 00:38 Order name: Rotavirus Antigen [facility] 11/18 00:38 Order name: Ova And Parasites [facility] 11/18 00:38 Order name: Occult Blood [facility] 11/17 23:29 Order name: Labs collected and sent; Complete Time: 23:33 [facility] 11/17 23:29 Order name: Urine Dipstick-Ancillary (obtain specimen); Complete Time: 00:06 4 Administered Medications: 00:06 Drug: LoMOTIL 2 tabs Route: PO; mg2 01:15 Follow up: Response: No adverse reaction lp1 00:06 Drug: NS 0.9% 1000 ml Route: IV; Rate: 1 bolus; Site: right antecubital; mg2 01:15 Follow up: IV Status: Completed infusion; IV Intake: 1000ml lp1 01:04 Drug: Flagyl 500 mg Route: PO; mg2 01:14 Follow up: Response: No adverse reaction lp1 Disposition: 11/19/19 00:46 Discharged to Home. Impression: Diarrhea, unspecified. - Condition is Stable. - Discharge Instructions: Diarrhea, Adult. - Prescriptions for Flagyl 500 mg Oral Tablet - take 1 tablet by ORAL route every 12 hours for 7 days; 14 tablet. Lomotil 2.5- 0.025 mg Oral Tablet - take 2 tablet by ORAL route once daily As needed; 20 tablet. - Medication Reconciliation Form, Thank You Letter, Antibiotic Education, Prescription Opioid Use form. - Follow up: Private Physician; When: Upon discharge from the Emergency Department; Reason: Recheck today's complaints, Continuance of care, Re-evaluation by your physician. - Problem is new. - Symptoms have improved. Signatures: Dispatcher [employer] EDID Scarlet Pruitt RN RN lp1 Kristy Santamaria RN RN ea Wadley, Terrence, MD MD tw4 Cedrick Sandhu RN RN mg2 Corrections: (The following items were deleted from the chart) 01:15 00:46 11/19/2019 00:46 Discharged to Home. Impression: Diarrhea, unspecified. Condition lp1 is Stable. Forms are Medication Reconciliation Form, Thank You Letter, Antibiotic Education, Prescription Opioid Use. Follow up: Private Physician; When: Upon discharge from the Emergency Department; Reason: Recheck today's complaints, Continuance of care, Re-evaluation by your physician. Problem is new. Symptoms have improved. tw4 06:55 06:54 Onset: The symptoms/episode began/occurred today, tw4 tw4
[2019-11-19] MEDS ORDERED: metroNIDAZOLE 500 MG TABLET ONE (01:01)
[2019-11-20 09:15] VITALS: TEMP 98.4
[2019-11-20 09:16] VITALS: BP 115/86; O2SAT 99
== END 2019-11-19 01:15 | disposition home or self-care (01) ==
LOC: ER 23:20
DX: R19.7 Diarrhea, unspecified (principal)
CPT/HCPCS: 87045; 85025; 80048; 36415; 89055; 87177; 82274; 80076; 87046; 87209; 83690; 87425; 96360; 99284; J7030